=== PATIENT | male | born 1955 | race Caucasian/White ===

== ENCOUNTER 2020-05-24 07:06 | Outpatient (CLI) | payer MEDICARE, SELFPAY ==
[2020-05-24 08:19] LABS: Alanine Aminotransferase 13 U/L (4-50); Albumin Level 3.5 g/dL (3.5-5.1); Alkaline Phosphatase 119 U/L (38-126); Anion Gap 7 mmol/L (8-16); Aspartate Amino Transferase 13 U/L (17-59); Bilirubin,Total 0.4 mg/dL (0.2-1.3); Blood Urea Nitrogen 27 mg/dL (9-20); Calcium 9.4 mg/dL (8.4-10.2); Carbon Dioxide 26 mmol/L (22-30); Chloride 100 mmol/L (98-107); Cholesterol 196 mg/dL (0-200); Creatine Kinase 41 U/L (55-170); Estimated Glomerular Filt Rate 47; Glucose 362 mg/dL (75-110); HDL Direct 47 mg/dL; Potassium 4.4 mmol/L (3.4-5.0); Sodium 133 mmol/L (137-145); Triglycerides 263 mg/dL (<150)
[2020-05-24 08:30] LABS: LDL Cholesterol Direct 91 mg/dL
[2020-05-24 09:00] LABS: Creatinine Urine 53.9 mg/dL
[2020-05-24 11:16] LABS: Microalbumin Urine Random > 1140.0 mg/L (0-16.7)
[2020-05-25 02:44] LABS: Hepatitis C Virus Antibody Negative (Negative)
== END 2020-05-24 07:07 | disposition home or self-care (01) ==
PROVIDERS: PCP Nurse Practitioner Family; Visit Provider Nurse Practitioner Family
DX: E55.9 Vitamin D deficiency, unspecified (principal); E11.42 Type 2 diabetes mellitus with diabetic polyneuropathy; Z79.4 Long term (current) use of insulin
CPT/HCPCS: 36415; 80053; 80061; 82043; 82550; 86803

== ENCOUNTER 2020-06-24 12:31 | Outpatient (CLI) | payer MEDICARE, SELFPAY ==
--- NOTE | 2020-06-24 | EST_ITS ---
Patient Info Name: Mikhail Hill Age: 64 years : 1955 Gender: Male Ht: 75 in Wt: 400 lbs BSA: 3.19 m2 Exam Date: 06/24/2020 2:02 PM Exam Location: [facility] Stress Patient Status: Outpatient Admit Date: 06/24/2020 Staff Ordering Physician: Rajendra Stallworth MD Attending Provider: Rajendra Stallworth MD Exercise Technologist: Danna Ramsey RDCS Exercise Physician: Rajendra Stallworth MD Exam Type: CA dobutamine stress w david Study Info Indications R07.9 - Chest pain, unspecified Summary 1. Normal sinus rhythm. 2. Appropriate heart rate response to Empty. 3. Empty throughout the test. 4. Nuclear scan to follow. Will be reported separately. Please correlate with it. Protocol: Doubutamine Stress ECG Details Stage: REST Duration (min): 2 min : 42 sec Leija: --- Speed (mph): 0.0 Grade (%): 0 HR (bpm): 59 SBP (mmHg): 130 DBP (mmHg): 79 METS: --- Stage: REST Duration (min): 29 min : 45 sec Leija: --- Speed (mph): 0.0 Grade (%): 0 HR (bpm): 60 SBP (mmHg): 130 DBP (mmHg): 79 METS: --- Stage: STAGE 1 Duration (min): 1 min : 0 sec Leija: --- Speed (mph): 0.0 Grade (%): 0 HR (bpm): 63 SBP (mmHg): 130 DBP (mmHg): 79 METS: --- Stage: STAGE 1 Duration (min): 2 min : 0 sec Leija: --- Speed (mph): 0.0 Grade (%): 0 HR (bpm): 70 SBP (mmHg): 129 DBP (mmHg): 60 METS: --- Stage: STAGE 1 Duration (min): 3 min : 0 sec Leija: --- Speed (mph): 0.0 Grade (%): 0 HR (bpm): 85 SBP (mmHg): 146 DBP (mmHg): 62 METS: --- Stage: STAGE 2 Duration (min): 1 min : 0 sec Leija: --- Speed (mph): 0.0 Grade (%): 0 HR (bpm): 98 SBP (mmHg): 146 DBP (mmHg): 62 METS: --- Stage: STAGE 2 Duration (min): 2 min : 0 sec Leija: --- Speed (mph): 0.0 Grade (%): 0 HR (bpm): 116 SBP (mmHg): 210 DBP (mmHg): 58 METS: --- Stage: STAGE 2 Duration (min): 3 min : 0 sec Leija: --- Speed (mph): 0.0 Grade (%): 0 HR (bpm): 130 SBP (mmHg): 210 DBP (mmHg): 58 METS: --- Stage: STAGE 3 Duration (min): 0 min : 3 sec Elija: --- Speed (mph): 0.0 Grade (%): 0 HR (bpm): 130 SBP (mmHg): 210 DBP (mmHg): 58 METS: --- Stage: RECOVERY Duration (min): 0 min : 56 sec Leija: --- Speed (mph): 0.0 Grade (%): 0 HR (bpm): 118 SBP (mmHg): 235 DBP (mmHg): 61 METS: --- Stage: RECOVERY Duration (min): 1 min : 56 sec Leija: --- Speed (mph): 0.0 Grade (%): 0 HR (bpm): 109 SBP (mmHg): 235 DBP (mmHg): 61 METS: --- Stage: RECOVERY Duration (min): 2 min : 56 sec Leija: --- Speed (mph): 0.0 Grade (%): 0 HR (bpm): 102 SBP (mmHg): 235 DBP (mmHg): 61 METS: --- Stage: RECOVERY Duration (min): 3 min : 56 sec
--- NOTE | ~2020-06-24 | NM_ITS ---
EXAMINATION: NM Dobutamine stress w perfus DATE: 06/24/2020 15:46 INDICATION: Chest pain TECHNIQUE: Rest images were obtained following intravenous administration of 9.17 mCi Tc99m tetrofosm in ([employer]). The patient was infused intravenously with dobutamine. Prior to the end of the infusion , 28.1 mCi Tc99m tetrofosmin ([employer]) was administered intravenously, and stress images were obtaine d. Data was reconstructed into short axis and horizontal and vertical long axis SPECT images. Gated S PECT images were also obtained. COMPARISON: None. FINDINGS: Moderate to severe nonreversible perfusion defect consistent with infarct involving the mid inferior and basilar inferior segments. There is a mild reversible perfusion defect involving the ap ical lateral and mid inferolateral segments consistent with ischemia in the circumflex coronary arter y vascular distribution. There is normal left ventricular chamber size, wall motion and ejection frac tion. Left ventricular ejection fraction measures 63%. IMPRESSION: 1. Moderate to severe infarct involving the mid inferior and basilar inferior segments in the right c oronary artery vascular distribution. 2. Mild ischemia at the apical lateral and mid inferolateral segments in the circumflex coronary yanique ry vascular distribution. 3. Left ventricular ejection fraction measuring 63%. Reviewed, dictated and finalized at location A. IMPRESSION: 1. Moderate to severe infarct involving the mid inferior and basilar inferior s egments in the right coronary artery vascular distribution. 2. Mild ischemia at the apical lateral and mid inferolateral segments in the ci rcumflex coronary artery vascular distribution. 3. Left ventricular ejection fraction measuring 63%.
== END 2020-06-24 12:32 | disposition home or self-care (01) ==
LOC: ANHCARD 12:33
PROVIDERS: PCP Nurse Practitioner Family; Visit Provider Specialist
DX: I21.9 Acute myocardial infarction, unspecified (principal); I25.9 Chronic ischemic heart disease, unspecified; R07.9 Chest pain, unspecified; R06.09 Other forms of dyspnea
CPT/HCPCS: 78452; 93017; A9502; J0461; J1250

== ENCOUNTER 2021-08-29 12:29 | Outpatient (RCR) | payer MEDICARE, SELFPAY ==
--- NOTE | 2021-08-29 14:16 | REHOPWC ---
SEATING EVALUATION NOTIFICATION This is to notify provider that Mikhail Hill participated in a manual mobility device evaluation today. Recommendations were made specific to patient's needs. Seating Assessment documentation has been completed for detailed information on required equipment. The mobility device provider for this case is Sangeeta from [facility]. Please note that no further care plan will be developed on this account. [facility]. Please review, sign, date and return this discharge summary ALEXUS. I have been updated about the patient's current status and I agree with discharge from the above service at this time. Referring Physician Date
== END 2021-08-30 16:42 | disposition home or self-care (01) ==
LOC: ANHPT 12:29
PROVIDERS: PCP Nurse Practitioner Family; Visit Provider Nurse Practitioner Family
DX: Z74.09 Other reduced mobility (principal)
CPT/HCPCS: 97163

== ENCOUNTER 2023-01-10 22:50 | Inpatient (IN) | payer MEDICARE, SELFPAY ==
[2023-01-10] VITALS (14 sets, daily range): BP systolic 159–258; BP diastolic 92–150; PULSE 101–129; RESP 20–27; TEMP 36.1; O2SAT 69–99
--- NOTE | ~2023-01-10 | XR_ITS ---
EXAMINATION: XR chest 1V portable DATE: 01/14/2023 06:54 INDICATION: Respiratory failure. TECHNIQUE: A single frontal view of the chest was obtained. COMPARISON: Chest single view 01/13/2023, chest CT 01/12/2023 FINDINGS: The chest demonstrates clear lungs without pneumonia, pleural effusion, or pneumothorax. Th e heart size is normal. IMPRESSION: 1. No acute cardiopulmonary disease. Reviewed, dictated and finalized at location A.
--- NOTE | ~2023-01-10 | XR_ITS ---
EXAMINATION: XR chest 1V portable DATE: 01/13/2023 05:21 INDICATION: Respiratory failure. TECHNIQUE: A single frontal view of the chest was obtained on 2 radiographs. COMPARISON: Chest one view 01/12/2023, chest CT 01/12/2023 FINDINGS: There is no pneumonia, pleural effusion, or pneumothorax. The heart size is normal. IMPRESSION: 1. No acute cardiopulmonary disease. Reviewed, dictated and finalized at location A.
--- NOTE | ~2023-01-10 | XR_ITS ---
Portable chest x-ray Comparison: 03/05/2019 Clinical History: Chest pain Findings: There is mild to moderate pulmonary edema pattern. No pleural effusion or pneumothorax. C ardiomediastinal silhouette is stable. Bones and soft tissues are unremarkable. Impression: Mild to moderate bibasilar pulmonary edema. Correlate clinically for infection. Reviewed, dictated and finalized at [facility]. Impression: Mild to moderate bibasilar pulmonary edema. Correlate clinically for infection.
--- NOTE | ~2023-01-10 | XR_ITS ---
Portable chest x-ray Comparison: 01/10/2023 Clinical History: Respiratory failure Findings: There is mild pulmonary edema pattern, mildly improved from prior exam. No definite pleura l effusions. Cardiomediastinal silhouette is stable. Bones and soft tissues are unremarkable. Impression: Mild pulmonary edema pattern, improved from prior exam. Reviewed, dictated and finalized at [facility]. Impression: Mild pulmonary edema pattern, improved from prior exam.
--- NOTE | ~2023-01-10 | CT_ITS ---
EXAMINATION: CT chest abdomen pelvis wo con DATE: 01/12/2023 14:16 INDICATION: Hydronephrosis. TECHNIQUE: Computed tomography (CT) of the chest, abdomen, and pelvis was performed without intraveno us contrast. Automated exposure control and iterative reconstruction technique were employed. The dos e-length product was 2113.24 mGy-cm. COMPARISON: CT abdomen and pelvis 03/05/2019 FINDINGS: CHEST CT: There is mild dependent atelectasis bilaterally. Calcified right lung nodules and calcified right hil ar lymph nodes are consistent with old granulomatous disease. There are small pleural effusions. The heart size is normal. There are coronary artery calcifications. There are calcifications aortic valve . No pericardial effusion. There is bilateral gynecomastia. There are bridging endplate osteophytes a t multiple levels in the spine, consistent with diffuse idiopathic skeletal hyperostosis (DISH). Ther e is moderate thoracic spondylosis. ABDOMEN/PELVIS CT: The liver, gallbladder, and pancreas are normal. Calcifications in the spleen are consistent with old granulomatous disease. There are cysts in the kidneys measuring up to 15 mm on the left. There is no nephrolithiasis. There is no hydronephrosis. There is diverticulosis of the colon without evidence o f diverticulitis. The appendix is normal. There is calcified atherosclerosis of the aorta and many of the other arteries. There are no pathologically enlarged lymph nodes. There is no free intraperitone al fluid. There is moderate lumbar spondylosis. IMPRESSION: 1. No hydronephrosis. 2. Small pleural effusions. Reviewed, dictated and finalized at location A.
--- NOTE | ~2023-01-10 | US_ITS ---
EXAMINATION: US renal BI DATE: 01/11/2023 09:11 INDICATION: Acute kidney injury. TECHNIQUE: Multiple ultrasound grayscale images of the kidneys were obtained. COMPARISON: CT abdomen and pelvis 03/05/2019 FINDINGS: The right kidney measures 11.8 x 7.6 x 7.7 cm. The left kidney measures 15.0 x 6.7 x 8.1 cm. The kidn eys demonstrate normal parenchymal echogenicity. There is mild right hydronephrosis. The bladder is n ot visualized due to obesity. IMPRESSION: 1. Mild right hydronephrosis. Sensitivity and specificity are decreased by obesity. Reviewed, dictated and finalized at location A. IMPRESSION: 1. Mild right hydronephrosis. Sensitivity and specificity are decreased by obe sity.
--- NOTE | 2023-01-10 22:55 | ECG_ITS ---
Measurements Intervals [place] Rate: 127 P: 215 FL: 101 QRS: 75 QRSD: 136 T: 267 QT: 293 QTc: 427 Interpretive Statements SINUS OR ECTOPIC ATRIAL TACHYCARDIA INTRAVENTRICULAR CONDUCTION DELAY ANTEROSEPTAL ST ELEVATION- CONSIDER ACUTE INFARCT BASELINE WANDER- II, III, AVR, AVF, V1-V3 ABNORMAL ECG NO PREVIOUS ECG AVAILABLE FOR COMPARISON Electronically Signed On 01-11-2023 7:48:49 CDT by Yousif Stark D.O.
[2023-01-10] MEDS: NITROGLYCERIN OINTMENT 1 INCH DOSE TRANSDERM (23:00)
[2023-01-10] MEDS: FUROSEMIDE INJ 100 MG/10 ML VIAL 80 MG IV PUSH (23:00)
[2023-01-10] MEDS: NITROGLYCERIN SL 0.4 MG TABLET SUBLINGUAL (23:00)
[2023-01-10 23:04] LABS: Glucose Point of Care 324 mg/dl (65-105)
[2023-01-10 23:07] LABS: Basophils Absolute Auto 0.2 K/mm3 (0.0-0.1); Eosinophils Absolute Auto 0.2 K/mm3 (0-0.3); Eosinophils Percent Auto 1.3 % (0-4.4); Hematocrit 49.7 % (42.0-52.0); Hemoglobin 15.7 g/dL (14.0-18.0); Immature Granulocyte Percent A 0.6 % (0-0.5); Lymphocytes Absolute Auto 3.78 K/mm3 (0.9-3.2); Lymphocytes Percent Auto 23.1 % (18.3-44.2); Mean Corpuscular HGB Conc 31.6 g/dl (32-36); Mean Corpuscular Hemoglobin 29.5 pg (26-34); Mean Corpuscular Volume 93.4 fl (80-100); Mean Platelet Volume 10.2 fl (7.4-10.4); Monocytes Percent Auto 6.3 % (2.6-8.5); Neutrophils Absolute Auto 11.1 K/mm3 (1.3-6.7); Neutrophils Percent Auto 67.7 % (45.5-73.1); Platelet Count Result 470 k/mm3 (150-375); Red Blood Count 5.32 M/mm3 (4.6-6.20); Red Cell Distribution Width 13.4 % (11.5-14.5); White Blood Count 16.4 K/mm3 (4.5-10.0)
--- NOTE | 2023-01-10 23:07 | ED.GENADULT ---
HPI - General Adult General Chief complaint: Chest Pain Stated complaint: cp/STEMI Time Seen by Provider: 01/10/23 23:02 History of Present Illness HPI narrative: this is a 67-year-old male presenting ED with a chief complaint of chest pain and difficulty breathing. Patient states that he has had indigestion for the last 3 days. prior to arrival he then developed a burning pain in the center of his chest that is nonradiating, 5/10 intensity and constant. Approximately 30 minutes after that he developed shortness of breath and EMS was called. When EMS arrived he was hypoxic and placed on 15 L non-rebreather which improved his oxygenation to 85. Patient's blood pressure was >220/100 at that time. Patient took 650 aspirin prior to arrival. This time patient has 1-2 word dyspnea and is unable to provide much history. Related Data Home Medications Medication Instructions Recorded Confirmed insulin syringe needleless 1 mL #100 ea 09/10/19 12/02/19 (Easy Touch Luer Lock Insulin) pen needle, diabetic 32 gauge x #100 ea 09/10/19 12/02/19 1/6 (NovoFine Plus) pen needle, diabetic 32 gauge x #10 ea 09/10/19 12/02/19 5/32 (BD Ultra-Fine Kajal Pen Needle) Allergies Allergy/AdvReac Type Severity Reaction Status Date / Time acetaminophen Allergy Unknown Agitated Verified 01/10/23 22:53 Sulfa (Sulfonamide Allergy Unknown Agitated Verified 01/10/23 22:53 Antibiotics) HYDROCODONE BIT AdvReac Severe N/V Uncoded 01/10/23 22:53 PMFSH Past Medical History Medical History (Updated 01/11/23 @ 00:15 by Migue Gomez MD) Broken finger Broken foot CAD (coronary artery disease) DVT (deep venous thrombosis) Hernia Stroke Surgical History Surgical History H/O: knee surgery Hx of laminectomy Family History Family History Father Hypertension Mother Arthritis CAD (coronary artery disease) Grandparent Cerebrovascular accident Grandparent Cancer Father Family history of obesity Family history of heart disease in male family member before age 55 Hypertension Cerebrovascular accident Family history of arthritis Grandparent Hypertension Cerebrovascular accident Family history of malignant neoplasm Mother Family history of arthritis Other Diabetes mellitus Family history of allergic disorder Family history of coronary artery disease Social History Social History Smoking packs per day: 1 Smoking cigarettes per day: 20.0 Smoking status: Current every day smoker Second hand tobacco smoke exposure: Yes Alcohol intake: unknown Substance use: unknown Exam Narrative: APPEARANCE:Patient is diaphoretic appears uncomfortable Head: atraumatic. EYES: EOMI, NOSE: Atraumatic NECK: Trachea midline RESPIRATORY: tachypneic, hypoxic on room air, rhonchi in all lomeli CARDIOVASCULAR: RRR, no peripheral edema ABDOMINAL: Non-distended, obese MUSCULOSKELETAl: No obvious deformities NEURO: Alert. Moving 4/4 extremities SKIN:: diaphoretic PSYCHIATRIC: Normal affect Course Vital Signs Vital signs: Vital Signs Pulse Rate 129 H 01/10/23 22:53 Respiratory Rate 25 H 01/10/23 22:53 Pulse Oximetry 89 L 01/10/23 22:53 Oxygen Delivery Non-Rebreather Mask 01/10/23 22:53 Oxygen Flow Rate 15 01/10/23 22:53 Temperature 97 F L 01/10/23 22:55 Pulse Rate 101 H 01/10/23 23:51 Respiratory Rate 20 01/10/23 23:51 Blood Pressure 158/84 H 01/11/23 00:00 Pulse Oximetry 99 01/10/23 23:51 Oxygen Delivery BiPAP 01/10/23 23:37 Oxygen Flow Rate 15 01/10/23 22:53 Procedures Arterial Line Arterial line #1: Arterial Line Location: radial and left Discussed with the patient/family/POA, the placement of an arterial catheter, including its clinical necessity/indication and associated potential
[2023-01-10] MEDS: NITROGLYCERIN/D5W 200 MCG/ML 50 MG/250 ML BTL 30 MG IV CONT (23:10)
[2023-01-10 23:18] LABS: Alanine Aminotransferase 20 U/L (6-50); Albumin Level 4.1 g/dL (3.5-5.1); Alkaline Phosphatase 139 U/L (38-126); Anion Gap 10 mmol/L (8-16); Aspartate Amino Transferase 21 U/L (17-59); Bilirubin,Total 0.6 mg/dL (0.2-1.3); Blood Urea Nitrogen 40 mg/dL (9-20); Calcium 10.4 mg/dL (8.4-10.2); Carbon Dioxide 23 mmol/L (22-30); Chloride 104 mmol/L (98-107); Estimated CRCL calculation 52 ml/min; Estimated Glomerular Filt Rate 27; Glucose 358 mg/dL (65-110); Lipase 108 U/L (23-300); Partial Thromboplastin Time 29.5 SECONDS (22.3-36.8); Potassium 5.2 mmol/L (3.4-5.0); Prothrombin Time 12.6 Seconds (11.1-14.7); Sodium 137 mmol/L (137-145)
--- NOTE | 2023-01-10 23:42 | ECG_ITS ---
Measurements Intervals [place] Rate: 104 P: 39 ND: 172 QRS: 80 QRSD: 126 T: 262 QT: 335 QTc: 442 Interpretive Statements SINUS TACHYCARDIA INTRAVENTRICULAR CONDUCTION DELAY ST ELEVATION IN SEPTAL LEADS- CONSIDER ACUTE INFARCT WITH RECIPROCAL ST DEP DEPRESSION IN ANTEROLAT/INF LEADS ABNORMAL ECG COMPARED TO ECG 01/10/2023 22:52:26 HEART RATE HAS DECREASED Electronically Signed On 01-11-2023 7:52:44 CDT by Yousif Stark D.O.
[2023-01-10 23:50] LABS: Influenza A QL RT-PCR Negative (Negative); Influenza B QL RT-PCR Negative (Negative); SARS-CoV-2 RNA PCR Negative
[2023-01-10] MEDS: fentaNYL CITRATE INJ (*CRX) 100 MCG/2 ML VIAL IV PUSH (23:53)
[2023-01-10] MEDS: DEXTROSE 50% 25 GM/50 ML SYRINGE IV PUSH (23:55)
[2023-01-10] MEDS: INSULIN HUMAN REGULAR (*BKC) 100 UNITS/ML 10 UNITS IV PUSH (23:57)
[2023-01-10] MEDS: CALCIUM GLUCONATE 1,000 MG/10 ML VIAL 2000 MG IV PUSH (23:58)
[2023-01-11] VITALS (67 sets, daily range): BP systolic 96–228; BP diastolic 54–123; PULSE 63–102; RESP 11–25; TEMP 36.5–37.2; O2SAT 92–100; BMI 54.0
--- NOTE | 2023-01-11 | ECHO_ITS ---
Patient Info Name: Mikhail Hill Age: 67 years : 1955 Gender: Male Ht: 75 in Wt: 432 lbs BSA: 3.32 m2 HR: 77 bpm BP: 148 / 70 mmHg Heart Rhythm: Sinus Rhythm Exam Date: 01/11/2023 7:22 AM Exam Location: [facility] Pulmonary Patient Status: Inpatient Admit Date: 01/11/2023 Staff Ordering Physician: Mert Neff MD Social Welfare Administrator: Salas Rascon, RDCS, RT Attending Provider: Mert Neff MD Referring Physician: Tawanda VILLANUEVA; Exam Type: CA echo dop color flow w con Study Info Indications J96.91 - Respiratory failure, unspecified with hypoxia Complete two-dimensional, color flow and Doppler transthoracic echocardiogram is performed with contrast to opacify the left ventricle and to improve the deliniation of the left ventricle endocardial borders. Summary 1. Technically difficult study due to body habitus. 2. Left ventricular chamber dimension is normal. 3. There is moderately increased left ventricular wall thickness. 4. Left ventricular systolic function is severely reduced, estimated at 20-25%. 5. The left ventricular diastolic function is grade I diastolic dysfunction. 6. Right ventricular systolic function is normal. 7. There is trace mitral valve regurgitation. 8. There is trace tricuspid valve regurgitation. 9. Normal inferior vena cava with >50% collapse upon inspiration consistent with normal right atrial pressure, 3 mmHg. 10. There is trivial pericardial effusion. Left Ventricle Left ventricular chamber dimension is normal. Left ventricular systolic function is severely reduced, estimated at 20-25%. There is moderately increased left ventricular wall thickness. The left ventricular diastolic function is grade I diastolic dysfunction. Right Ventricle Right ventricular chamber dimension is not well visualized. Right ventricular systolic function is normal. Left Atria Left atrial chamber dimension is normal. Right Atria Right atrial chamber dimension is normal. Atrial Septum Intact interatrial septum visualized by color flow imaging. Aortic Valve The aortic valve is not well visualized. There is no aortic valve stenosis. There is no aortic valve regurgitation. Pulmonic Valve The pulmonic valve is not well visualized. Mitral Valve There is trace mitral valve regurgitation. Tricuspid Valve There is trace tricuspid valve regurgitation. Pericardium/Pleural The pericardium appears epicardial fat pad. There is trivial pericardial effusion. Inferior Vena Cava Normal inferior vena cava with >50% collapse upon inspiration consistent with normal right atrial pressure, 3 mmHg. Aorta The aortic root size at the sinus of Valsalva is not well visualized. Left Ventricular Outflow Tract Name Value Normal LVOT 2D LVOT Diameter 2.06 cm LVOT Doppler LVOT Peak Gradient 5 mmHg LVOT Mean Gradient 2 mmHg LVOT VTI 19.07 cm LVOT VTI/AV VTI Ratio 0.76 LVOT Stroke Volume 63.51 ml LVOT CO 5.02 l/m
[2023-01-11] MEDS: DOXYCYCLINE 100 MG/NS 100 ML 100 MG/100 ML BAG IVPB ×3 (00:19→23:04)
[2023-01-11 00:20] LABS: Alveolar/Arterial O2 Gradient 368.8 mmHg; Base Excess ABG -6.5 mEq/l (+/-2.0); Fractional Inspired Oxygen 100 %; HCO3 ABG 21.6 mEq/l (22.0-26.0); Oxygen Saturation ABG 99.6 % (95.0-100.0); PCO2 ABG 53.2 mmHg (35.0-45.0); PO2 FiO2 Ratio Arterial Blood 2.91 %; pH ABG 7.227 (7.350-7.450)
[2023-01-11 00:21] LABS: Device BIPAP; Site Drawn ARTLINE
[2023-01-11 00:22] LABS: Expiratory Pressure 8 cmH2O; Inspiratory Pressure 16 cmH2O
[2023-01-11] MEDS: HEPARIN SOD/D5W 100 UNITS/ML 25,000 UNITS/250 ML BAG 10 UNITS IV CONT (00:22)
[2023-01-11 00:26] LABS: Hematocrit 43.9 % (42.0-52.0); Hemoglobin 13.8 g/dL (14.0-18.0); Mean Corpuscular Hemoglobin 28.9 pg (26-34); Red Blood Count 4.77 M/mm3 (4.6-6.20); White Blood Count 13.6 K/mm3 (4.5-10.0)
[2023-01-11 00:26] LABS: Glucose Point of Care 395 mg/dl (65-105)
[2023-01-11 00:26] LABS: Glucose Point of Care 213 mg/dl (65-105)
[2023-01-11 00:27] LABS: Basophils Absolute Auto 0.1 K/mm3 (0.0-0.1); Basophils Percent Auto 0.4 % (0.2-1.2); Eosinophils Absolute Auto 0.1 K/mm3 (0-0.3); Eosinophils Percent Auto 0.4 % (0-4.4); Immature Granulocyte Absolute 0.07 K/mm3 (0.00-0.031); Immature Granulocyte Percent A 0.5 % (0-0.5); Lymphocytes Absolute Auto 1.15 K/mm3 (0.9-3.2); Lymphocytes Percent Auto 8.4 % (18.3-44.2); Mean Corpuscular HGB Conc 31.4 g/dl (32-36); Mean Platelet Volume 9.9 fl (7.4-10.4); Monocytes Absolute Auto 0.6 K/mm3 (0.1-0.6); Neutrophils Absolute Auto 11.7 K/mm3 (1.3-6.7); Neutrophils Percent Auto 86.3 % (45.5-73.1); Platelet Count Result 353 k/mm3 (150-375); Red Cell Distribution Width 13.2 % (11.5-14.5)
[2023-01-11] MEDS: ONDANSETRON INJ 4 MG/2 ML VIAL IV PUSH ×2 (00:31→00:35)
[2023-01-11 00:37] LABS: Prothrombin Time 12.7 Seconds (11.1-14.7)
[2023-01-11 00:38] LABS: Partial Thromboplastin Time 26.4 SECONDS (22.3-36.8)
[2023-01-11] MEDS: NITROGLYCERIN/D5W 200 MCG/ML 50 MG/250 ML BTL 30 MG IV CONT (01:30)
--- NOTE | 2023-01-11 01:46 | ADMGEN ---
This patient, Mikhail Hill, was admitted to Intensive Care Unit-9. Patient/family oriented to hospital policies and general routines including ID bracelet, bed and alarms, visiting hours, pain management, procedures, bathroom and other care routines, personal items, smoking policy, room service/diet, and visiting hours. Information on how to activate the Rapid Response Team has been discussed. Patient/Family are encouraged to report perceived risks to care and to ask questions if they do not understand what they are told or what they should do.
--- NOTE | 2023-01-11 03:09 | ECG_ITS ---
Measurements Intervals [place] Rate: 79 P: 0 IA: 160 QRS: 54 QRSD: 115 T: 243 QT: 355 QTc: 409 Interpretive Statements SINUS RHYTHM INTRAVENTRICULAR CONDUCTION DELAY INFERIOR INFARCT, AGE INDETERMINATE SUBTLE ST ELEVATION IN SEPTAL LEADS ST-T WAVE ABNORMALITY IN ANTEROLATERAL LEADS- CONSIDER ISCHEMIA ABNORMAL ECG COMPARED TO ECG 01/10/2023 23:46:12 SINUS RHYTHM NOW PRESENT Electronically Signed On 01-11-2023 7:55:55 CDT by Yousif Stark D.O.
--- NOTE | 2023-01-11 03:27 | PM.IMHP ---
H&P: HPI History of Present Illness Date/Time: 01/11/23 03:27 Chief Complaint: Chest pain and shortness of breath Narrative: Patient is a 67-year-old male with past medical history obesity hypertension and diabetes coming in for chest pain shortness Jordan breath. Patient supposedly was brought in by EMS after he complained of some chest pain and shortness of breath at home. On arrival to the emergency room patient was in florid respiratory failure in without blood pressure of 250/150. The patient had a chest x-ray done which showed pulmonary edema. He had an EKG done which showed some ST depressions. Patient was treated with IV Lasix and was started on a nitro drip to control his blood pressure. He was thought to be in flash pulmonary edema and hypertensive emergency. Patient had an initial troponin of 0.19. Patient had improvement of symptoms would Lasix and initiation of nitro drip with decrease in his blood pressure. Patient was referred to the clinical aide who recommended starting patient on heparin drip. Patient currently seen in the ICU. He is on a nitro drip with blood pressure in the 160 systolic. The patient is also on a BiPAP but is able to converse without any evidence of tachypnea or distress. Patient says he is feeling so much better and is currently denying any chest pains. Patient is awake alert oriented x3. He says he is compliant with this medications with usual blood sugar readings of 130s and blood pressures in the 140s to 150 so only. He says he takes his insulin as instructed. He denies any current headache, fever, nausea or vomiting. There is no dysuria or diarrhea. He is able to lay flat in bed. Review of Systems Review of Systems: no fever or weight loss no vision changes, no eye discharge no throat pain, no hoarseness, no lymphadenopathy Resolved chest pain, no palpitations no coughing, no wheezing no abdominal pain, no diarrhea, no nausea, no vomiting no dysuria, no vaginal discharge no leg swelling, no edema no suicidal or homicidal ideation PMFSH Past Medical History Medical History (Updated 01/11/23 @ 00:15 by Migue Gomez MD) Broken finger Broken foot CAD (coronary artery disease) DVT (deep venous thrombosis) Hernia Stroke Surgical History Surgical History H/O: knee surgery Hx of laminectomy Family History Family History Father Hypertension Mother Arthritis CAD (coronary artery disease) Grandparent Cerebrovascular accident Grandparent Cancer Father Family history of obesity Family history of heart disease in male family member before age 55 Hypertension Cerebrovascular accident Family history of arthritis Grandparent Hypertension Cerebrovascular accident Family history of malignant neoplasm Mother Family history of arthritis Other Diabetes mellitus Family history of allergic disorder Family history of coronary artery disease Social History Social History Smoking packs per day: 1 Smoking cigarettes per day: 20.0 Years smoked: 30 Smoking pack-years: 30.00 Smoking status: Former smoker Tobacco type: cigarettes Second hand tobacco smoke exposure: Yes Alcohol intake: former Substance use: never Lack of Transportation: No Lack of Food: Never True Current Housing: I Have Housing Concerned About Future Housing: No Difficulty Paying Gas/Electric Bills: No Difficulty Paying for Meds: No Currently Unemployed: No Education: High School Diploma/GED Difficulty w/ Childcare or Family Care: No Spiritual care concerns: No Meds Home Medications and Allergies Home Medications Medication Instructions Recorded Confirmed Type insulin lispro 100 unit/mL 15 unit (0.15 mL) subcut DAILY #3 09/10/19 01/11/23 Rx subcutaneous pen (Humalog KwikPen mL (U-1
--- NOTE | 2023-01-11 03:50 | PC.NURSE ---
Troponin increased from 0.190 to 25.3. Patient denies chest pain, shortness of breath, dizziness, or nausea & vomiting. Dr. Neff notified and received orders to obtain EKG and notify [employer] risk control field representative. Dr. Fortune notified and, after reviewing EKG's, RN received order to continue current treatment of Heparin and Nitroglycerin drips and make patient NPO for possible cardiac catheterization in the AM. Will continue to monitor.
[2023-01-11] MEDS: NITROGLYCERIN/D5W 200 MCG/ML 50 MG/250 ML BTL 28.5 MG IV CONT (05:50)
[2023-01-11 06:19] LABS: Alveolar/Arterial O2 Gradient 99.1 mmHg; Base Excess ABG -2.3 mEq/l (+/-2.0); Fractional Inspired Oxygen 36 %; HCO3 ABG 24.2 mEq/l (22.0-26.0); Oxygen Content ABG 18.6 %vol (16.0-22.0); Oxygen Saturation ABG 97.2 % (95.0-100.0); Oxyhemoglobin 96.5 % THb (90.0-100.0); PO2 ABG 101.9 mmHg (80.0-100.0); PO2 FiO2 Ratio Arterial Blood 2.83 %; Total Hemoglobin 13.6 g/dL (12.0-18.0)
[2023-01-11 06:20] LABS: Device NASAL CANNULA; Site Drawn ARTLINE
[2023-01-11 06:24] LABS: Basophils Absolute Auto 0.1 K/mm3 (0.0-0.1); Basophils Percent Auto 0.5 % (0.2-1.2); Eosinophils Absolute Auto 0.1 K/mm3 (0-0.3); Eosinophils Percent Auto 0.5 % (0-4.4); Hematocrit 39.9 % (42.0-52.0); Hemoglobin 12.4 g/dL (14.0-18.0); Immature Granulocyte Absolute 0.06 K/mm3 (0.00-0.031); Immature Granulocyte Percent A 0.5 % (0-0.5); Lymphocytes Absolute Auto 1.88 K/mm3 (0.9-3.2); Lymphocytes Percent Auto 15.1 % (18.3-44.2); Mean Corpuscular HGB Conc 31.1 g/dl (32-36); Mean Corpuscular Hemoglobin 28.2 pg (26-34); Mean Corpuscular Volume 90.7 fl (80-100); Mean Platelet Volume 10.1 fl (7.4-10.4); Monocytes Percent Auto 7.8 % (2.6-8.5); Neutrophils Absolute Auto 9.4 K/mm3 (1.3-6.7); Neutrophils Percent Auto 75.6 % (45.5-73.1); Platelet Count Result 313 k/mm3 (150-375); Red Cell Distribution Width 13.1 % (11.5-14.5); White Blood Count 12.4 K/mm3 (4.5-10.0)
[2023-01-11 06:36] LABS: Alanine Aminotransferase 36 U/L (6-50); Albumin Level 3.3 g/dL (3.5-5.1); Alkaline Phosphatase 75 U/L (38-126); Anion Gap 4 mmol/L (8-16); Aspartate Amino Transferase 266 U/L (17-59); Bilirubin,Total 0.4 mg/dL (0.2-1.3); Blood Urea Nitrogen 41 mg/dL (9-20); Calcium 10.5 mg/dL (8.4-10.2); Carbon Dioxide 29 mmol/L (22-30); Chloride 105 mmol/L (98-107); Estimated CRCL calculation 51 ml/min; Estimated Glomerular Filt Rate 27; Glucose 253 mg/dL (65-110); Potassium 4.6 mmol/L (3.4-5.0); Sodium 138 mmol/L (137-145)
[2023-01-11 06:37] LABS: Partial Thromboplastin Time 29.8 SECONDS (22.3-36.8)
[2023-01-11] MEDS: HEPARIN SODIUM 5,000 UNITS/ML VIAL 4000 UNITS IV PUSH ×3 (06:43→19:55)
[2023-01-11 08:15] LABS: Creatine Kinase 1321 U/L (55-170)
[2023-01-11] MEDS: carvediloL 6.25 MG TABLET PO ×2 (08:36→20:12)
[2023-01-11] MEDS: INSULIN GLARGINE (*BKC) 100 UNITS/ML 30 UNITS SUB-Q (08:36)
[2023-01-11] MEDS: DULoxetine HCL 60 MG CAPSULE.DR PO (08:44)
[2023-01-11] MEDS: ROSUVASTATIN 10 MG TABLET 40 MG PO (08:44)
[2023-01-11] MEDS: ASPIRIN 325 MG ENTERIC TABLET PO (08:47)
--- NOTE | 2023-01-11 09:54 | WPDCNINT ---
Assessment and Plan Assessment and plan (1) Respiratory failure, acute: Code(s): J96.00 - Acute respiratory failure, unspecified whether with hypoxia or hypercapnia Status: Acute Assessment and Plan: Acute respiratory failure secondary to congestive heart failure and pulmonary edema Patient was started on BiPAP in the ER In ICU patient has been now weaned down to nasal cannula Continue to monitor Continue BiPAP p.r.n. and CPAP at night for sleep apnea Chest x-ray Mild to moderate bibasilar pulmonary edema. Correlate clinically for infection. Since he had elevated WBC patient was empirically started on antibiotics for community-acquired pneumonia which will be continued although the likelihood of infection is low. Check cultures and procalcitonin level. Will also check urine Legionella pneumococcal antigen. Check mycoplasma IgM (2) Flash pulmonary edema: Code(s): J81.0 - Acute pulmonary edema Status: Acute Assessment and Plan: Secondary to hypertensive emergency and non STEMI Improved with Lasix Patient down to nasal cannula now (3) Non-ST elevation [place] (NSTEMI): Code(s): I21.4 - Non-ST elevation (NSTEMI) myocardial infarction Status: Acute Assessment and Plan: EKG reviewed and showed ST T-wave abnormality. Patient had elevated troponin and chest pain He had a stress test done in June of 2020 which was abnormal but he never saw any outside repairer special following the testing. Patient likely has underlying coronary disease Currently chest pain-free Continue aspirin statin beta-viktoriya and heparin infusion Echocardiogram has been done and report is pending Cardiology was consulted in the ED and will evaluate patient today (4) Elevated serum creatinine: Code(s): R79.89 - Other specified abnormal findings of blood chemistry Status: Acute Assessment and Plan: Patient presented with creatinine of 2.4, Last recorded creatinine was 1.5 in May of 2020 With history of hypertension diabetes patient likely has chronic kidney disease and not sure if 2.4 is his baseline or this has been acute elevation in creatinine Patient has elevated CK level at 1321 which could be secondary to myocardial infarction Patient mentioned history of kidney stones. I will Check renal ultrasound Nephrology consulted Monitor urine output electrolytes and creatinine Hold further diuretics today (5) Diabetes type 2, uncontrolled: Code(s): E11.65 - Type 2 diabetes mellitus with hyperglycemia Status: Acute Assessment and Plan: Currently NPO Continue sliding scale Will give Lantus this morning (6) Hyperlipidemia: Code(s): E78.5 - Hyperlipidemia, unspecified Status: Acute Assessment and Plan: Continue rosuvastatin (7) MATEUS (obstructive sleep apnea): Code(s): G47.33 - Obstructive sleep apnea (adult) (pediatric) Status: Acute Assessment and Plan: Nightly cPAP ordered (8) Hypertensive emergency: Code(s): I16.1 - Hypertensive emergency Status: Acute Assessment and Plan: Patient presented with elevated blood pressure above 200 systolic and was started on nitroglycerin infusion I have added Coreg this morning patient did receive Lasix Blood pressure has now improved and I have currently discontinue nitroglycerin infusion Will restart if needed depending on his blood pressure response and if patient develops any more chest pain Plan DVT prophylaxis -heparin infusion Nutrition -NPO Code Status - Full Code Total Critical Care Time - 40 minutes Due to a high probability of clinically significant, life threatening deterioration, the patient required my highest level of preparedness to intervene emergently and I personally spent this critical care time directly and personally managing the patient. This critical care time included obtaining a history; examining the patient; pulse oximetry; ordering and review of studies; arrangi
--- NOTE | 2023-01-11 11:16 | PM.CNCAR ---
Assessment and Plan Assessment and plan (1) Non-ST elevation [place] (NSTEMI): Code(s): I21.4 - Non-ST elevation (NSTEMI) myocardial infarction Status: Acute Assessment and Plan: Patient had a dobutamine stress test in 06/2020 that showed moderate-severe infarct involving the RCA territory and mild ischemia in the LCX territory. LVEF at that time 63%. It does not appear patient ever followed up with anyone regarding the abnormal stress test. Troponin trend: 0.190 --> 25.3 --> 70.3. Will continue to trend troponin until peak. Recommended cardiac cath, however, cannot pursue at this time given DEE with SCr of 2.4. No urgency for cath at this time as patient is now asymptomatic without any chest pain. Continue Heparin drip x 48 hours. ASA 81mg once daily. Will start Plavix 75mg once daily. High-intensity statin. Beta viktoriya. TTE pending. (2) Hypertensive emergency: Code(s): I16.1 - Hypertensive emergency Status: Acute Assessment and Plan: SBP 258/150mmHg on arrival. Improved with NTG drip. Now normotensive and off of NTG drip. Continue with Carvedilol. Cannot use ACEi/ARB for blood pressure control at this time due to DEE. Would start CCB if blood pressure control needed. (3) Acute kidney injury: Code(s): N17.9 - Acute kidney failure, unspecified Status: Acute Assessment and Plan: Scr of 2.4. Baseline unknown, but no known history of CKD. (4) Flash pulmonary edema: Code(s): J81.0 - Acute pulmonary edema Status: Acute Assessment and Plan: Resolved with BIPAP, NTG drip, Lasix. Intermittent Lasix as needed to maintain euvolemia. (5) Respiratory failure, acute: Code(s): J96.00 - Acute respiratory failure, unspecified whether with hypoxia or hypercapnia Status: Acute Assessment and Plan: Require BIPAP. Management as per ICU (6) Diabetes type 2, uncontrolled: Code(s): E11.65 - Type 2 diabetes mellitus with hyperglycemia Status: Acute Assessment and Plan: Will check A1c (7) Hyperlipidemia: Code(s): E78.5 - Hyperlipidemia, unspecified Status: Acute Assessment and Plan: Check lipid panel. Continue high-intensity statin (8) MATEUS (obstructive sleep apnea): Code(s): G47.33 - Obstructive sleep apnea (adult) (pediatric) Status: Acute Assessment and Plan: Will need CPAP when sleeping. History of Present Illness History of Present Illness Consult date/time: 01/11/23 11:17 Requesting physician: Migue Gomez MD Consult reason: Other (NSTEMI) Reason For Visit: hypoxic resp failure Narrative: This is a 67-year-old male with known coronary artery disease, morbid obesity with BMI 54, history of kidney stones, hypertension, diabetes who presented with shortness of breath and chest pain. Patient tells me that he's been having chest pain that first began about 3-4 days. Not associated with exertion, but noticed it after eating. Patient states yesterday, he ate some pizza and then began having chest pain and then developed shortness of breath. He characterizes his chest pain as a burning type of pain that normally improves with antacids, but yesterday's episode of chest pain did not improve with antacids. No radiation of pain. Due to the shortness of breath, he called EMS. When EMS arrived, he was hypoxic and placed on 15L non-rebreather which improved his oxygenation to 85%. Patient states he took 650mg of ASA prior to arrival. Initially, a STEMI was activated in the field by EMS. When patient arrived to the ER, immediate EKG was obtained. I reviewed the EKG with the ER attending, Dr. Gomez, which did not show clear evidence of STEMI. There were ST depressions concerning for myocardial ischemia. Patient was severely hypertensive at that time as well with BP of 258/150mmHg. Patient was hypoxic and only able to speak 1-2 word sentences. He was placed on BIPAP and NTG drip was started. Also given IV
[2023-01-11 11:33] LABS: Procalcitonin 0.4 ng/mL
[2023-01-11] MEDS: CLOPIDOGREL BISULFATE 300 MG TABLET PO (11:43)
[2023-01-11] MEDS: cefTRIAXone 2 GM/NS 100 ML 2 GM/100 ML BAG IVPB (11:43)
[2023-01-11 12:07] LABS: Hemoglobin A1C 8.2 % (<5.7)
--- NOTE | 2023-01-11 12:09 | P.CONNP_ITS ---
Assessment and Plan Assessment and plan (1) Acute kidney injury: Code(s): N17.9 - Acute kidney failure, unspecified Status: Acute Assessment and Plan: * creatinine a tad higher that baseline (see #2) * however, rather than an acute insult, this may just be an element of CKD progression * direutic regimen was changed from HCTZ to furosemide about 4 months ago * follow-up on pending testing (urine electrolytes, renal ultrasound...etc) * follow repeat labs and UOP (2) Stage 3b chronic kidney disease: Code(s): N18.32 - Chronic kidney disease, stage 3b Status: Chronic Assessment and Plan: * recently established care with Dr. Gold for this issue * baseline creatinine has been running ~ 1.9 - 2.2mg/dl in the last year (2021) * was 1.6mg/dl in 2020 * etiology of CKD thought to be seconday to DM, HTN, vascular disease and kidney stones * history of bilateral staghorn kidney stones requiring lithotripsies/ureteral stents placement + removal/nephrostomy tubes placement + removal (3) Respiratory failure, acute: Code(s): J96.00 - Acute respiratory failure, unspecified whether with hypoxia or hypercapnia Status: Acute Assessment and Plan: * multifactorial: * CHF * pulmonary edema (secondary to HTN urgency + NSTEMI) * MATEUS/OHS * pneumonia(?) * was on BiPAP in ER - weaned down to nasal cannula * s/p IV diuretic therapy for pulmonary edema * empirically on antibiotics * follow respiratory status (4) Non-ST elevation [place] (NSTEMI): Code(s): I21.4 - Non-ST elevation (NSTEMI) myocardial infarction Status: Acute Assessment and Plan: * as noted by evidence to date: * EKG with ST and T wave abnormalities * elevated troponins * chest pain on presentation * has clear risk factors for CAD * abnormnal stress test 2019 (no follow-up regarding this testing) * chest pain free * Cardiology following * continue medical management (ASA + BB + heparin gtt) * follow-up on Echo * ischemic evaluation may be limited by renal dysfunction (5) Hypertension: Code(s): I10 - Essential (primary) hypertension Status: Chronic Assessment and Plan: * HTN urgency on presentation * better control at this time * off nitro gtt currently * follow trend of hemodynamics with current medications (6) Diabetes type 2, uncontrolled: Code(s): E11.65 - Type 2 diabetes mellitus with hyperglycemia Status: Acute Assessment and Plan: * follow accuchecks * glycemic control per hospitalist/modeling and simulation analyst Greater than 25 minutes was spent in detailed review of his extensive medical records along with the information that the patient was able to provide as well. I will continue to follow the patient with you while he remains hospitalized and make further recommendations during his hospital course. Thank you for allowing me to participate in the care this patient History of Present Illness Reason for Consult Consult date: 01/11/23 Reason for consult: acute renal failure (on chronic kidney disease) Chief Complaint Chief complaint: hypoxic resp failure History of Present Illness Narrative: A great deal the information I have obtained with regard to the patient's past medical history is from review of his electronic medical records at [facility] along with what history the patient was able to provide. The patient is a 67-year-old male with an extensive past medical history as outlined below who presented to [facility]
--- NOTE | 2023-01-11 12:09 | PM.CNNEP ---
Assessment and Plan Assessment and plan (1) Acute kidney injury: Code(s): N17.9 - Acute kidney failure, unspecified Status: Acute Assessment and Plan: creatinine a tad higher that baseline (see #2) however, rather than an acute insult, this may just be an element of CKD progression direutic regimen was changed from HCTZ to furosemide about 4 months ago follow-up on pending testing (urine electrolytes, renal ultrasound...etc) follow repeat labs and UOP (2) Stage 3b chronic kidney disease: Code(s): N18.32 - Chronic kidney disease, stage 3b Status: Chronic Assessment and Plan: recently established care with Dr. Gold for this issue baseline creatinine has been running ~ 1.9 - 2.2mg/dl in the last year (2021) was 1.6mg/dl in 2020 etiology of CKD thought to be seconday to DM, HTN, vascular disease and kidney stones history of bilateral staghorn kidney stones requiring lithotripsies/ureteral stents placement + removal/nephrostomy tubes placement + removal (3) Respiratory failure, acute: Code(s): J96.00 - Acute respiratory failure, unspecified whether with hypoxia or hypercapnia Status: Acute Assessment and Plan: multifactorial: CHF pulmonary edema (secondary to HTN urgency + NSTEMI) MATEUS/OHS pneumonia(?) was on BiPAP in ER - weaned down to nasal cannula s/p IV diuretic therapy for pulmonary edema empirically on antibiotics follow respiratory status (4) Non-ST elevation [place] (NSTEMI): Code(s): I21.4 - Non-ST elevation (NSTEMI) myocardial infarction Status: Acute Assessment and Plan: as noted by evidence to date: EKG with ST and T wave abnormalities elevated troponins chest pain on presentation has clear risk factors for CAD abnormnal stress test 2019 (no follow-up regarding this testing) chest pain free Cardiology following continue medical management (ASA + BB + heparin gtt) follow-up on Echo ischemic evaluation may be limited by renal dysfunction (5) Hypertension: Code(s): I10 - Essential (primary) hypertension Status: Chronic Assessment and Plan: HTN urgency on presentation better control at this time off nitro gtt currently follow trend of hemodynamics with current medications (6) Diabetes type 2, uncontrolled: Code(s): E11.65 - Type 2 diabetes mellitus with hyperglycemia Status: Acute Assessment and Plan: follow accuchecks glycemic control per hospitalist/strategic sourcing manager Greater than 25 minutes was spent in detailed review of his extensive medical records along with the information that the patient was able to provide as well. I will continue to follow the patient with you while he remains hospitalized and make further recommendations during his hospital course. Thank you for allowing me to participate in the care this patient History of Present Illness Reason for Consult Consult date: 01/11/23 Reason for consult: acute renal failure (on chronic kidney disease) Chief Complaint Chief complaint: hypoxic resp failure History of Present Illness Narrative: A great deal the information I have obtained with regard to the patient's past medical history is from review of his electronic medical records at [facility] along with what history the patient was able to provide. The patient is a 67-year-old male with an extensive past medical history as outlined below who presented to [facility] Emergency room with complaints of chest pain in association with shortness of breath. Apparently, for the last 2 days, the patient has been having a burning sensation/ pain in his chest which was intermittent in nature. This chest discomfort was also associated with shortness of breath as well. On the day prior to admission, the chest pain became quite severe and change from intermittent to persistent. His shortness of breath also seemed to deteriorate as well which p
[2023-01-11 12:31] LABS: Glucose Point of Care 184 mg/dl (65-105)
[2023-01-11 12:52] LABS: Partial Thromboplastin Time 34.2 SECONDS (22.3-36.8)
[2023-01-11 13:05] LABS: Cholesterol 323 mg/dL (0-200); HDL Direct 45 mg/dL; Triglycerides 374 mg/dL (<150)
[2023-01-11 13:16] LABS: LDL Cholesterol Direct 170 mg/dL
[2023-01-11 13:21] LABS: Troponin I > 80.000 ng/mL (0.000-0.034)
--- NOTE | 2023-01-11 15:53 | PM.IMPN ---
Progress Note: A&P Assessment and Plan (1) Flash pulmonary edema: Code(s): J81.0 - Acute pulmonary edema Status: Acute Assessment and Plan: Patient came in with acute respiratory failure, blood pressure 150/150, symptoms suggestive flash edema. Patient given Lasix IV and was started on nitro drip. Patient felt better with improvement in blood pressure. Currently denies any chest pain. On review of home meds, there is no listed antihypertensive. Wean off nitro drip as tolerated. We will give the patient beta-viktoriya. Patient in acute kidney injury, will hold off on Brent inhibitors. Patient initially placed on BiPAP in the emergency room, able to talk comfortably with no evidence of tachypnea or shortness of breath currently, weaned off to nasal cannula as tolerated. 01/11/2023 interval history: Morbidly obese with BMI of 54 presented with emergently elevated blood pressure of 250/150 patient was placed on nitro drip, IV Lasix and transferred to ICU with BiPAP, and was also found to have elevated tropes seen by Cardiology patient had a abnormal dobutamine stress test in Jun 2020 however patient did not follow-up with his cardiology, medicine teacher recommended cardiac catheterization with it is not emergent as patient clinical symptoms have improved and he has no chest pain will continue heparin for 48 hours and started the patient on Plavix status and beta-viktoriya, will monitor, patient blood pressure has trended down and he is off nitro drip, currently patient denies any chest pain or shortness of breath, he is on BiPAP (2) Respiratory failure, acute: Code(s): J96.00 - Acute respiratory failure, unspecified whether with hypoxia or hypercapnia Status: Acute Assessment and Plan: Patient came in with florid respiratory failure, improved significantly with Lasix and nitro drip. Currently on BiPAP but saturating 100% with no complaints of further shortness of breath or chest pain. Patient able to talk in full sentences. Wean off as tolerated. Await official chest x-ray reading. Patient with a elevated WBC count of 16,000 on admission, will cover with empiric antibiotics. (3) Non-ST elevation [place] (NSTEMI): Code(s): I21.4 - Non-ST elevation (NSTEMI) myocardial infarction Status: Acute Assessment and Plan: Patient came in with chest pain and shortness of breath, found to be in flash pulmonary edema. EKG shows changes of sinus tachycardia with ST depressions in several leads. Old EKG was over 7 years ago which showed regular sinus rhythm. Unknown if these he changes are new or chronic. Patient had elevated troponin. Referred to cardiology and recommended to start on heparin drip. Continue to trend troponins. Check 2D echo to see ejection fraction. Consider cardiac catheterization. (4) Diabetes type 2, uncontrolled: Code(s): E11.65 - Type 2 diabetes mellitus with hyperglycemia Status: Acute Assessment and Plan: Patient with history of diabetes mellitus and is on high insulin doses at home. He reports blood sugar readings usually in the 130s. Blood sugar on admission elevated. Will monitor Accu-Cheks and cover with sliding scale insulin. Check hemoglobin A1c. Avoid hypoglycemia in setting of acute kidney injury. (5) Acute kidney injury: Code(s): N17.9 - Acute kidney failure, unspecified Status: Acute Assessment and Plan: Under review of labs patient had last creatinine of 1.5 over 3 years ago, unknown what his most recent creatinine was, current creatinine 2.4 here. Will adjust medications according to creatinine clearance. Likely due to uncontrolled hypertension as well as diabetes. Avoid nephrotoxins. Control blood pressure and blood sugar. Plan Admit to ICU Await further cardiology recommendations Subjective Date/time seen: 01/11/23 15:53 Chest pain and shortness of breath HPI-Narrative: Patient is a 67-year-old male with past medical histor
[2023-01-11 16:24] LABS: Troponin I > 80.000 ng/mL (0.000-0.034)
[2023-01-11 17:10] LABS: Glucose Point of Care 176 mg/dl (65-105)
[2023-01-11] MEDS: HEPARIN SOD/D5W 100 UNITS/ML 25,000 UNITS/250 ML BAG 20 UNITS IV CONT (17:11)
[2023-01-11 19:03] LABS: Partial Thromboplastin Time 46.1 SECONDS (22.3-36.8)
[2023-01-11 20:15] LABS: Glucose Point of Care 193 mg/dl (65-105)
[2023-01-12] VITALS (18 sets, daily range): BP systolic 107–140; BP diastolic 56–78; PULSE 56–80; RESP 12–22; TEMP 36.2–37.1; O2SAT 94–98
[2023-01-12 01:30] LABS: Partial Thromboplastin Time 55.2 SECONDS (22.3-36.8)
[2023-01-12] MEDS: HEPARIN SODIUM 5,000 UNITS/ML VIAL 4000 UNITS IV PUSH (01:40)
[2023-01-12] MEDS: HEPARIN SOD/D5W 100 UNITS/ML 25,000 UNITS/250 ML BAG 28 UNITS IV CONT ×3 (01:41→19:34)
[2023-01-12 05:04] LABS: Alveolar/Arterial O2 Gradient 14.7 mmHg; Base Excess ABG -0.5 mEq/l (+/-2.0); Carboxyhemoglobin 0.2 % THb (0-2.0); Fractional Inspired Oxygen 25 %; Methemoglobin ABG 0.3 %THb (0-1.5); Oxygen Content ABG 17.1 %vol (16.0-22.0); Oxygen Saturation ABG 97.3 % (95.0-100.0); Oxyhemoglobin 96.4 % THb (90.0-100.0); PCO2 ABG 50.5 mmHg (35.0-45.0); PO2 ABG 103.6 mmHg (80.0-100.0); PO2 FiO2 Ratio Arterial Blood 4.14 %; Reduced Hemoglobin 3.1 %THb (0-5.0); Total Hemoglobin 12.5 g/dL (12.0-18.0)
[2023-01-12 05:05] LABS: Device NON-INVASIVE VENT; Modified Allen's Test Pass; Non-Invasive Expiratory Pressure 8 CMH2O; Non-Invasive Inspiratory Pressure 16 CMH2O; Non-Invasive Vent Rate 12 /MIN; Site Drawn RIGHT RADIAL
[2023-01-12 09:12] LABS: Hematocrit 37.7 % (42.0-52.0); Hemoglobin 11.6 g/dL (14.0-18.0); Mean Corpuscular HGB Conc 30.8 g/dl (32-36); Mean Corpuscular Hemoglobin 28.8 pg (26-34); Mean Corpuscular Volume 93.5 fl (80-100); Mean Platelet Volume 10.1 fl (7.4-10.4); Platelet Count Result 247 k/mm3 (150-375); Red Blood Count 4.03 M/mm3 (4.6-6.20); Red Cell Distribution Width 13.3 % (11.5-14.5); White Blood Count 11.2 K/mm3 (4.5-10.0)
[2023-01-12] MEDS: DULoxetine HCL 60 MG CAPSULE.DR PO (09:18)
[2023-01-12] MEDS: carvediloL 6.25 MG TABLET PO ×2 (09:18→21:11)
[2023-01-12] MEDS: ASPIRIN 81 MG ENTERIC TABLET PO (09:18)
[2023-01-12] MEDS: CLOPIDOGREL BISULFATE 75 MG TABLET PO (09:19)
[2023-01-12] MEDS: ROSUVASTATIN 10 MG TABLET 40 MG PO (09:19)
[2023-01-12 09:25] LABS: Partial Thromboplastin Time 90.4 SECONDS (22.3-36.8)
[2023-01-12 09:33] LABS: Glucose Point of Care 137 mg/dl (65-105)
--- NOTE | 2023-01-12 09:33 | WPDINTPN ---
Progress Note: A&P Assessment and Plan (1) Respiratory failure, acute: Code(s): J96.00 - Acute respiratory failure, unspecified whether with hypoxia or hypercapnia Status: Acute Assessment and Plan: Acute respiratory failure secondary to congestive heart failure and pulmonary edema Patient was started on BiPAP in the ER In ICU patient has been now weaned down to nasal cannula Continue to monitor Continue BiPAP p.r.n. and CPAP at night for sleep apnea Chest x-ray Mild to moderate bibasilar pulmonary edema. Correlate clinically for infection continue Lasix. Patient had elevated WBC on presentation and in light of chest infiltrates he was started on empiric antibiotics for community-acquired pneumonia. He denied any symptoms suggestive of infection, his WBC has normalized, he has remained afebrile, his procalcitonin level is low. I will hold further antibiotics this time since this appears to be pulmonary edema. Cultures have been sent and are pending. Pending urine Legionella pneumococcal antigen. Pending mycoplasma IgM (2) Flash pulmonary edema: Code(s): J81.0 - Acute pulmonary edema Status: Acute Assessment and Plan: Secondary to hypertensive emergency and non STEMI Improved with Lasix. Continue Lasix today Patient down to nasal cannula now (3) Non-ST elevation [place] (NSTEMI): Code(s): I21.4 - Non-ST elevation (NSTEMI) myocardial infarction Status: Acute Assessment and Plan: EKG reviewed and showed ST T-wave abnormality. Patient had elevated troponin and chest pain He had a stress test done in June of 2020 which was abnormal but he never saw any windlace machine operator following the testing. Patient likely has underlying coronary disease Currently chest pain-free Cardiology following and no plan for cardiac catheterization at this time. Recommend continuing aspirin statin beta-viktoriya and heparin infusion Echocardiogram Summary ? 1. Technically difficult study due to body habitus. ? 2. Left ventricular chamber dimension is normal. ? 3. There is moderately increased left ventricular wall thickness. ? 4. Left ventricular systolic function is severely reduced, estimated at 20-25%. ? 5. The left ventricular diastolic function is grade I diastolic dysfunction. ? 6. Right ventricular systolic function is normal. ? 7. There is trace mitral valve regurgitation. ? 8. There is trace tricuspid valve regurgitation. ? 9. Normal inferior vena cava with >50% collapse upon inspiration consistent with normal right atrial pressure, 3 mmHg. ? 10. There is trivial pericardial effusion (4) Elevated serum creatinine: Code(s): R79.89 - Other specified abnormal findings of blood chemistry Status: Acute Assessment and Plan: Patient presented with creatinine of 2.4, Last recorded creatinine was 1.5 in May of 2020 With history of hypertension diabetes patient likely has chronic kidney disease and not sure if 2.4 is his baseline or this has been acute elevation in creatinine Patient has elevated CK level at 1321 which could be secondary to myocardial infarction Patient mentioned history of kidney stones and kidney stents. Renal ultrasound showed Mild right hydronephrosis. Sensitivity and specificity are decreased by obesity. Will obtain CT and consult Urology if needed Nephrology following Monitor urine output electrolytes and creatinine Continue Lasix Repeat BMP pending today (5) Diabetes type 2, uncontrolled: Code(s): E11.65 - Type 2 diabetes mellitus with hyperglycemia Status: Acute Assessment and Plan: Start diabetic diet Continue sliding scale and Lantus (6) Hyperlipidemia: Code(s): E78.5 - Hyperlipidemia, unspecified Status: Acute Assessment and Plan: Continue rosuvastatin (7) MATEUS (obstructive sleep apnea): Code(s): G47.33 - Obstructive sleep apnea (adult) (pediatric) Status: Acute Assessment and Plan: Nightly cPAP ordered (8) H
[2023-01-12 09:35] LABS: Alanine Aminotransferase 38 U/L (6-50); Albumin Level 3.3 g/dL (3.5-5.1); Alkaline Phosphatase 51 U/L (38-126); Anion Gap 2 mmol/L (8-16); Aspartate Amino Transferase 135 U/L (17-59); Bilirubin,Total 0.7 mg/dL (0.2-1.3); Blood Urea Nitrogen 45 mg/dL (9-20); Calcium 10.3 mg/dL (8.4-10.2); Carbon Dioxide 28 mmol/L (22-30); Chloride 106 mmol/L (98-107); Estimated CRCL calculation 49 ml/min; Estimated Glomerular Filt Rate 26; Glucose 138 mg/dL (65-110); Magnesium 1.9 mg/dL (1.6-2.3); Potassium 4.8 mmol/L (3.4-5.0); Sodium 136 mmol/L (137-145)
--- NOTE | 2023-01-12 09:41 | PM.PNCARD ---
Progress Note: A&P Assessment and Plan (1) Non-ST elevation CT (NSTEMI): Code(s): I21.4 - Non-ST elevation (NSTEMI) myocardial infarction Status: Acute Assessment and Plan: Patient had a dobutamine stress test in 06/2020 that showed moderate-severe infarct involving the RCA territory and mild ischemia in the LCX territory. LVEF at that time 63%. It does not appear patient ever followed up with anyone regarding the abnormal stress test. Troponin trend: 0.190 --> 25.3 --> 70.3 --> >80 Recommended cardiac cath, however, cannot pursue at this time given DEE with SCr of 2.5. No urgency for cath at this time as patient is now asymptomatic without any chest pain. Continue Heparin drip x 48 hours (due to be discontinued tonight around midnight). ASA 81mg once daily. Plavix 75mg once daily. High-intensity statin. Beta viktoriya. Echo 01/11/2023 showed severely reduced LVSF, EF 20 - 25%, grade I diastolic dysfunction. No significant valvular abnormalities Will need LifeVest before discharge GDMT with Entresto, jardiance, and spironolactone when renal function improves (2) Hypertensive emergency: Code(s): I16.1 - Hypertensive emergency Status: Acute Assessment and Plan: SBP 258/150mmHg on arrival. Improved with NTG drip. Now normotensive and off of NTG drip. Continue with Carvedilol. Cannot use ACEi/ARB for blood pressure control at this time due to DEE. Would start CCB if blood pressure control needed. (3) Acute kidney injury: Code(s): N17.9 - Acute kidney failure, unspecified Status: Acute Assessment and Plan: Scr of 2.5. Baseline unknown, but no known history of CKD. (4) Flash pulmonary edema: Code(s): J81.0 - Acute pulmonary edema Status: Acute Assessment and Plan: Resolved with BIPAP, NTG drip, Lasix. Intermittent Lasix as needed to maintain euvolemia. (5) Respiratory failure, acute: Code(s): J96.00 - Acute respiratory failure, unspecified whether with hypoxia or hypercapnia Status: Acute Assessment and Plan: Improved. Now on supplemental O2 per nasal cannula. (6) Diabetes type 2, uncontrolled: Code(s): E11.65 - Type 2 diabetes mellitus with hyperglycemia Status: Acute Assessment and Plan: Will check A1c (7) Hyperlipidemia: Code(s): E78.5 - Hyperlipidemia, unspecified Status: Acute Assessment and Plan: Continue high-intensity statin (8) MATEUS (obstructive sleep apnea): Code(s): G47.33 - Obstructive sleep apnea (adult) (pediatric) Status: Acute Assessment and Plan: Will need CPAP when sleeping. Subjective Date/time seen: 01/12/23 09:41 Cardiology follow up for NSTEMI, cardiomyopathy No acute events overnight. He does not have any complaints this morning except he is thirsty and wants water. Denies any chest pain, shortness of breath, or palpitations. Review of Systems Review of Systems: All systems reviewed & are unremarkable except as noted in HPI and below (HPI) Exam Const: General: comfortable and no acute distress Other: Morbidly obese HENMT: Mouth: Yes moist mucous membranes Eyes: General: appearance normal, both eyes and all related structures Sclera: sclerae normal Neck: Neck: supple Other: Cannot assess JVD due to body habitus Resp: Effort & Inspection: normal respiratory effort Auscultation: clear to auscultation bilaterally Other: Decreased breath sounds bilaterally. Cardio: Rate: regular rate Rhythm: regular rhythm Heart sounds: no murmurs GI: Other: Obese abdomen Skin: General skin exam: normal color Neuro: Speech: normal speech Extrem: General: normal to inspection Psych: Mental Status: mental status grossly normal Affect: normal affect Objective Data Vital Signs Vital Signs: Vital Signs - 24 hr 01/11/23 09:50 01/11/23 09:56 01/11/23 10:27 Temperature Pulse Rate 71 75 69 Respiratory Rate 15
--- NOTE | 2023-01-12 10:09 | P.PNNP_ITS ---
Progress Note: A&P Assessment and Plan (1) Acute kidney injury: Code(s): N17.9 - Acute kidney failure, unspecified Status: Acute Assessment and Plan: * creatinine a tad higher that baseline (see #2) * however, rather than an acute insult, this may just be an element of CKD progression * depressed EF likely contributing to this as well (an element of cardiorenal syndrome) * follow-up on pending testing (urine electrolytes, renal ultrasound...etc) * follow repeat labs and UOP (2) Stage 3b chronic kidney disease: Code(s): N18.32 - Chronic kidney disease, stage 3b Status: Chronic Assessment and Plan: * recently established care with Dr. Gold for this issue * baseline creatinine has been running ~ 1.9 - 2.2mg/dl in the last year (2021) * was 1.5 - 1.6mg/dl in 2020 (arguing in favor of some disease progression) * new cardiomyopathy (low EF) probably contributing to higher creatinine as well * etiology of CKD thought to be secondary to DM, HTN, vascular disease and kidney stones * history of bilateral staghorn kidney stones requiring lithotripsies/uret eral stents placement + removal/nephrostomy tubes placement + removal (3) Respiratory failure, acute: Code(s): J96.00 - Acute respiratory failure, unspecified whether with hypoxia or hypercapnia Status: Acute Assessment and Plan: * improving/resolving * multifactorial: * CHF * pulmonary edema (secondary to HTN urgency + NSTEMI) * MATEUS/OHS * pneumonia(?) * was on BiPAP in ER - weaned down to nasal cannula * s/p IV diuretic therapy for pulmonary edema * empirically on antibiotics for possible pneumonia * follow respiratory status (4) Non-ST elevation [place] (NSTEMI): Code(s): I21.4 - Non-ST elevation (NSTEMI) myocardial infarction Status: Acute Assessment and Plan: * as noted by evidence to date: * EKG with ST and T wave abnormalities * elevated troponins * chest pain on presentation * has clear risk factors for CAD * abnormnal stress test 2019 (no follow-up regarding this testing) * chest pain free currently * Cardiology following * continue medical management (ASA + BB + statin+ heparin gtt) * Echo results noted -- EF ~ 20 - 25% * ischemic evaluation limited by renal dysfunction (5) Hypertension: Code(s): I10 - Essential (primary) hypertension Status: Chronic Assessment and Plan: * HTN urgency on presentation * better control at this time * off nitro gtt currently * follow trend of hemodynamics with current medications (6) Diabetes type 2, uncontrolled: Code(s): E11.65 - Type 2 diabetes mellitus with hyperglycemia Status: Acute Assessment and Plan: * follow accuchecks * glycemic control per hospitalist/front clerk Will continue to follow. Subjective Date/time seen: 01/12/23 10:09 No acute issues or problems overnight or earlier this morning; no complaints of chest pain or shortness of breath; stable hemodynamics off nitroglycerin gtt; remains on supplemental oxygen but respiratory status seems relatively stable; remains on heparin gtt. Exam Narrative: General: WD/WN Caucasin male in NAD Heart: normal S1 and S2; no rub Lungs: clear to auscultation Abdomen: soft, nontender, nondistended, positive bowel sounds Extremities: no cyanosis or clubbing; no edema Skin: warm and dry Objective Data Vital Signs Vital Signs:
--- NOTE | 2023-01-12 10:09 | PM.PNNEP ---
Progress Note: A&P Assessment and Plan (1) Acute kidney injury: Code(s): N17.9 - Acute kidney failure, unspecified Status: Acute Assessment and Plan: creatinine a tad higher that baseline (see #2) however, rather than an acute insult, this may just be an element of CKD progression depressed EF likely contributing to this as well (an element of cardiorenal syndrome) follow-up on pending testing (urine electrolytes, renal ultrasound...etc) follow repeat labs and UOP (2) Stage 3b chronic kidney disease: Code(s): N18.32 - Chronic kidney disease, stage 3b Status: Chronic Assessment and Plan: recently established care with Dr. Gold for this issue baseline creatinine has been running ~ 1.9 - 2.2mg/dl in the last year (2021) was 1.5 - 1.6mg/dl in 2020 (arguing in favor of some disease progression) new cardiomyopathy (low EF) probably contributing to higher creatinine as well etiology of CKD thought to be secondary to DM, HTN, vascular disease and kidney stones history of bilateral staghorn kidney stones requiring lithotripsies/ureteral stents placement + removal/nephrostomy tubes placement + removal (3) Respiratory failure, acute: Code(s): J96.00 - Acute respiratory failure, unspecified whether with hypoxia or hypercapnia Status: Acute Assessment and Plan: improving/resolving multifactorial: CHF pulmonary edema (secondary to HTN urgency + NSTEMI) MATEUS/OHS pneumonia(?) was on BiPAP in ER - weaned down to nasal cannula s/p IV diuretic therapy for pulmonary edema empirically on antibiotics for possible pneumonia follow respiratory status (4) Non-ST elevation [place] (NSTEMI): Code(s): I21.4 - Non-ST elevation (NSTEMI) myocardial infarction Status: Acute Assessment and Plan: as noted by evidence to date: EKG with ST and T wave abnormalities elevated troponins chest pain on presentation has clear risk factors for CAD abnormnal stress test 2019 (no follow-up regarding this testing) chest pain free currently Cardiology following continue medical management (ASA + BB + statin+ heparin gtt) Echo results noted -- EF ~ 20 - 25% ischemic evaluation limited by renal dysfunction (5) Hypertension: Code(s): I10 - Essential (primary) hypertension Status: Chronic Assessment and Plan: HTN urgency on presentation better control at this time off nitro gtt currently follow trend of hemodynamics with current medications (6) Diabetes type 2, uncontrolled: Code(s): E11.65 - Type 2 diabetes mellitus with hyperglycemia Status: Acute Assessment and Plan: follow accuchecks glycemic control per hospitalist/diesel maintenance technician Will continue to follow. Subjective Date/time seen: 01/12/23 10:09 No acute issues or problems overnight or earlier this morning; no complaints of chest pain or shortness of breath; stable hemodynamics off nitroglycerin gtt; remains on supplemental oxygen but respiratory status seems relatively stable; remains on heparin gtt. Exam Narrative: General: WD/WN Caucasin male in NAD Heart: normal S1 and S2; no rub Lungs: clear to auscultation Abdomen: soft, nontender, nondistended, positive bowel sounds Extremities: no cyanosis or clubbing; no edema Skin: warm and dry Objective Data Vital Signs Vital Signs: Vital Signs Temp Pulse Resp BP Pulse Ox O2 Del Method O2 Flow Rate 01/12/23 08:52 132/68 01/12/23 09:18 65 01/12/23 08:00 98.4 F 60 12 132/61 97 01/12/23 08:46 97 Nasal Cannula 2 01/12/23 06:00 56 L 17 120/57 L 96 01/12/23 06:00 57 L 01/12/23 04:00 62 01/12/23 04:00 80 21 H 98 BiPAP 01/12/23 04:00 98 F 62 15 137/63 97 01/12/23 05:07 80 21 H 98 BiPAP 01/12/23 02:00 60 01/12/23 02:00 60 20 124/67 97 01/12/23 00:00 65 01/12/23 00:00 65 19 96 B
[2023-01-12] MEDS: FUROSEMIDE INJ 40 MG/4 ML VIAL IV PUSH (10:17)
[2023-01-12 11:42] LABS: Glucose Point of Care 138 mg/dl (65-105)
[2023-01-12 11:58] LABS: Creatinine Urine 48.8 mg/dL
[2023-01-12 12:08] LABS: Creatinine Urine 50.4 mg/dL
[2023-01-12 12:10] LABS: Sodium Urine Random 109 meq/L
[2023-01-12 12:14] LABS: Urea Random Urine 273 MG/DL
[2023-01-12 12:33] LABS: Total Protein Urine Random > 500 mg/dL
[2023-01-12 12:46] LABS: Eosinophil Urine Rare % (None Seen)
[2023-01-12 12:53] LABS: Urine Eos QC 2nd Tech Confirmed
[2023-01-12 13:06] LABS: Total Protein Urine Random > 500 mg/dL
--- NOTE | 2023-01-12 15:06 | PM.IMPN ---
Progress Note: A&P Assessment and Plan (1) Flash pulmonary edema: Code(s): J81.0 - Acute pulmonary edema Status: Acute Assessment and Plan: Patient came in with acute respiratory failure, blood pressure 150/150, symptoms suggestive flash edema. Patient given Lasix IV and was started on nitro drip. Patient felt better with improvement in blood pressure. Currently denies any chest pain. On review of home meds, there is no listed antihypertensive. Wean off nitro drip as tolerated. We will give the patient beta-viktoriya. Patient in acute kidney injury, will hold off on Brent inhibitors. Patient initially placed on BiPAP in the emergency room, able to talk comfortably with no evidence of tachypnea or shortness of breath currently, weaned off to nasal cannula as tolerated. 01/12/2023 interval history: Morbidly obese with BMI of 54 presented with emergently elevated blood pressure of 250/150 patient was placed on nitro drip, IV Lasix and transferred to ICU with BiPAP, and was also found to have elevated tropes seen by Cardiology patient had a abnormal dobutamine stress test in Jun 2020 however patient did not follow-up with his cardiology, last greaser recommended cardiac catheterization with it is not emergent as patient clinical symptoms have improved and he has no chest pain will continue heparin for 48 hours and started the patient on Plavix status and beta-viktoriya, will monitor, patient blood pressure has trended down and he is off nitro drip, currently patient denies any chest pain or shortness of breath, he is off BiPAP, his clinical symptoms have improved will transfer patient out of ICU, patient is present in the room and gave updates (2) Respiratory failure, acute: Code(s): J96.00 - Acute respiratory failure, unspecified whether with hypoxia or hypercapnia Status: Acute Assessment and Plan: Patient came in with florid respiratory failure, improved significantly with Lasix and nitro drip. Currently on BiPAP but saturating 100% with no complaints of further shortness of breath or chest pain. Patient able to talk in full sentences. Wean off as tolerated. Await official chest x-ray reading. Patient with a elevated WBC count of 16,000 on admission, will cover with empiric antibiotics. (3) Non-ST elevation [place] (NSTEMI): Code(s): I21.4 - Non-ST elevation (NSTEMI) myocardial infarction Status: Acute Assessment and Plan: Patient came in with chest pain and shortness of breath, found to be in flash pulmonary edema. EKG shows changes of sinus tachycardia with ST depressions in several leads. Old EKG was over 7 years ago which showed regular sinus rhythm. Unknown if these he changes are new or chronic. Patient had elevated troponin. Referred to cardiology and recommended to start on heparin drip. Continue to trend troponins. Check 2D echo to see ejection fraction. Consider cardiac catheterization. (4) Diabetes type 2, uncontrolled: Code(s): E11.65 - Type 2 diabetes mellitus with hyperglycemia Status: Acute Assessment and Plan: Patient with history of diabetes mellitus and is on high insulin doses at home. He reports blood sugar readings usually in the 130s. Blood sugar on admission elevated. Will monitor Accu-Cheks and cover with sliding scale insulin. Check hemoglobin A1c. Avoid hypoglycemia in setting of acute kidney injury. (5) Acute kidney injury: Code(s): N17.9 - Acute kidney failure, unspecified Status: Acute Assessment and Plan: Under review of labs patient had last creatinine of 1.5 over 3 years ago, unknown what his most recent creatinine was, current creatinine 2.4 here. Will adjust medications according to creatinine clearance. Likely due to uncontrolled hypertension as well as diabetes. Avoid nephrotoxins. Control blood pressure and blood sugar. Plan Admit to ICU Await further cardiology recommendations Subjective Date/time seen: 0
[2023-01-12 15:53] LABS: Partial Thromboplastin Time 84.5 SECONDS (22.3-36.8)
--- NOTE | 2023-01-12 16:16 | PC.NURSE ---
Report given at bedside to SAYDA Morel at 1615.
[2023-01-12 16:32] LABS: Glucose Point of Care 140 mg/dl (65-105)
[2023-01-12 17:13] LABS: Glucose Point of Care 146 mg/dl (65-105)
[2023-01-12 20:06] LABS: Glucose Point of Care 154 mg/dl (65-105)
[2023-01-13] VITALS (18 sets, daily range): BP systolic 108–150; BP diastolic 53–78; PULSE 54–66; RESP 16–23; TEMP 36.1–36.6; O2SAT 94–100
[2023-01-13] MEDS: MELATONIN 5 MG TABLET PO (00:40)
[2023-01-13] MEDS: HEPARIN SOD/D5W 100 UNITS/ML 25,000 UNITS/250 ML BAG 28 UNITS IV CONT ×3 (03:10→19:46)
[2023-01-13 05:17] LABS: Hematocrit 37.1 % (42.0-52.0); Hemoglobin 11.6 g/dL (14.0-18.0); Mean Corpuscular HGB Conc 31.3 g/dl (32-36); Mean Corpuscular Hemoglobin 28.6 pg (26-34); Mean Corpuscular Volume 91.4 fl (80-100); Platelet Count Result 247 k/mm3 (150-375); Red Blood Count 4.06 M/mm3 (4.6-6.20); Red Cell Distribution Width 13.1 % (11.5-14.5)
[2023-01-13 05:32] LABS: Alanine Aminotransferase 30 U/L (6-50); Albumin Level 3.3 g/dL (3.5-5.1); Alkaline Phosphatase 56 U/L (38-126); Anion Gap 3 mmol/L (8-16); Aspartate Amino Transferase 61 U/L (17-59); Bilirubin,Total 0.6 mg/dL (0.2-1.3); Blood Urea Nitrogen 46 mg/dL (9-20); Calcium 9.6 mg/dL (8.4-10.2); Carbon Dioxide 30 mmol/L (22-30); Chloride 102 mmol/L (98-107); Creatine Kinase 183 U/L (55-170); Estimated CRCL calculation 44 ml/min; Estimated Glomerular Filt Rate 23; Glucose 127 mg/dL (65-110); Magnesium 1.8 mg/dL (1.6-2.3); Potassium 4.2 mmol/L (3.4-5.0); Sodium 135 mmol/L (137-145)
[2023-01-13 05:34] LABS: Alveolar/Arterial O2 Gradient 16.9 mmHg; Base Excess ABG 1.1 mEq/l (+/-2.0); Carboxyhemoglobin 1.7 % THb (0-2.0); Fractional Inspired Oxygen 21 %; HCO3 ABG 25.6 mEq/l (22.0-26.0); Methemoglobin ABG 0.3 %THb (0-1.5); Oxygen Content ABG 16.3 %vol (16.0-22.0); Oxygen Saturation ABG 96.6 % (95.0-100.0); Oxyhemoglobin 95.2 % THb (90.0-100.0); PCO2 ABG 40.3 mmHg (35.0-45.0); PO2 ABG 84.6 mmHg (80.0-100.0); PO2 FiO2 Ratio Arterial Blood 4.03 %; Reduced Hemoglobin 2.8 %THb (0-5.0); Total Hemoglobin 12.1 g/dL (12.0-18.0); pH ABG 7.421 (7.350-7.450)
[2023-01-13 05:57] LABS: Modified Allen's Test Pass; Site Drawn LEFT RADIAL
[2023-01-13 08:11] LABS: Glucose Point of Care 139 mg/dl (65-105)
[2023-01-13] MEDS: CLOPIDOGREL BISULFATE 75 MG TABLET PO (08:22)
[2023-01-13] MEDS: ASPIRIN 81 MG ENTERIC TABLET PO (08:22)
[2023-01-13] MEDS: ROSUVASTATIN 10 MG TABLET 40 MG PO (08:22)
[2023-01-13] MEDS: carvediloL 6.25 MG TABLET PO ×2 (08:22→19:46)
[2023-01-13] MEDS: DULoxetine HCL 60 MG CAPSULE.DR PO (08:22)
--- NOTE | 2023-01-13 10:34 | P.PNNP_ITS ---
Progress Note: A&P Assessment and Plan (1) Acute kidney injury: Code(s): N17.9 - Acute kidney failure, unspecified Status: Acute Assessment and Plan: * creatinine up compared to baseline (see #2) * however, rather than an acute insult, there may just be an element of CKD progression * his newly depressed EF and NSTEMI likely contributing to this as well (an element of cardiorenal syndrome) * evaluation to date: * renal ultrasound with mild right hydronephrosis * CT of abd/pelvis mentions no hydronephrosis * nephrotic range proteinuria noted * CPK mildly elevated but suspect related to NSTEMI * FeUrea suggest prerenal azotemia (but that likely a reflection of his depressed EF) * follow repeat labs and UOP (2) Stage 3b chronic kidney disease: Code(s): N18.32 - Chronic kidney disease, stage 3b Status: Chronic Assessment and Plan: * recently established care with Dr. Gold for this issue * baseline creatinine has been running ~ 1.9 - 2.2mg/dl in the last year (2021) * was 1.5 - 1.6mg/dl in 2020 (arguing in favor of some disease progression) * new cardiomyopathy (low EF) + recent NSTEMI probably contributing to higher creatinine as well * etiology of CKD thought to be secondary to DM, HTN, vascular disease and kidney stones * history of bilateral staghorn kidney stones requiring lithotripsies/ureteral stents placement + removal/nephrostomy tubes placement + removal (3) Respiratory failure, acute: Code(s): J96.00 - Acute respiratory failure, unspecified whether with hypoxia or hypercap jena Status: Acute Assessment and Plan: * improving/resolving * multifactorial: * CHF * pulmonary edema (secondary to HTN urgency + NSTEMI) * MATEUS/OHS * pneumonia(?) * was on BiPAP in ER - weaned down to nasal cannula * s/p IV diuretic therapy for pulmonary edema * was on empiric antibiotics for possible pneumonia but discontinued * follow respiratory status (4) Non-ST elevation [place] (NSTEMI): Code(s): I21.4 - Non-ST elevation (NSTEMI) myocardial infarction Status: Acute Assessment and Plan: * as noted by evidence to date: * EKG with ST and T wave abnormalities * elevated troponins * chest pain on presentation * has clear risk factors for CAD * abnormnal stress test 2019 (no follow-up regarding this testing) * chest pain free currently * Cardiology following * continue medical management (ASA + BB + statin+ heparin gtt) * Echo results noted -- EF ~ 20 - 25% * ischemic evaluation limited by renal dysfunction (5) Hypertension: Code(s): I10 - Essential (primary) hypertension Status: Chronic Assessment and Plan: * HTN urgency on presentation * better control at this time * follow trend of hemodynamics with current medications (6) Diabetes type 2, uncontrolled: Code(s): E11.65 - Type 2 diabetes mellitus with hyperglycemia Status: Acute Assessment and Plan: * follow accuchecks * glycemic control per hospitalist/gasoline attendant Will continue to follow. Subjective Date/time seen: 01/13/23 10:34 No apparent distress voiced at the time of my visit; transferred out of ICU; no further episodes of chest pain or shortness of breath to report; no issues/events overnight or earlier this morning; only real complaints is difficulty sleeping last night. Exam Narrative: General: WD/WN male in NAD Heart: normal S1 and S2; no rub Lungs: cl
--- NOTE | 2023-01-13 10:34 | PM.PNNEP ---
Progress Note: A&P Assessment and Plan (1) Acute kidney injury: Code(s): N17.9 - Acute kidney failure, unspecified Status: Acute Assessment and Plan: creatinine up compared to baseline (see #2) however, rather than an acute insult, there may just be an element of CKD progression his newly depressed EF and NSTEMI likely contributing to this as well (an element of cardiorenal syndrome) evaluation to date: renal ultrasound with mild right hydronephrosis CT of abd/pelvis mentions no hydronephrosis nephrotic range proteinuria noted CPK mildly elevated but suspect related to NSTEMI FeUrea suggest prerenal azotemia (but that likely a reflection of his depressed EF) follow repeat labs and UOP (2) Stage 3b chronic kidney disease: Code(s): N18.32 - Chronic kidney disease, stage 3b Status: Chronic Assessment and Plan: recently established care with Dr. Gold for this issue baseline creatinine has been running ~ 1.9 - 2.2mg/dl in the last year (2021) was 1.5 - 1.6mg/dl in 2020 (arguing in favor of some disease progression) new cardiomyopathy (low EF) + recent NSTEMI probably contributing to higher creatinine as well etiology of CKD thought to be secondary to DM, HTN, vascular disease and kidney stones history of bilateral staghorn kidney stones requiring lithotripsies/ureteral stents placement + removal/nephrostomy tubes placement + removal (3) Respiratory failure, acute: Code(s): J96.00 - Acute respiratory failure, unspecified whether with hypoxia or hypercapnia Status: Acute Assessment and Plan: improving/resolving multifactorial: CHF pulmonary edema (secondary to HTN urgency + NSTEMI) MATEUS/OHS pneumonia(?) was on BiPAP in ER - weaned down to nasal cannula s/p IV diuretic therapy for pulmonary edema was on empiric antibiotics for possible pneumonia but discontinued follow respiratory status (4) Non-ST elevation [place] (NSTEMI): Code(s): I21.4 - Non-ST elevation (NSTEMI) myocardial infarction Status: Acute Assessment and Plan: as noted by evidence to date: EKG with ST and T wave abnormalities elevated troponins chest pain on presentation has clear risk factors for CAD abnormnal stress test 2019 (no follow-up regarding this testing) chest pain free currently Cardiology following continue medical management (ASA + BB + statin+ heparin gtt) Echo results noted -- EF ~ 20 - 25% ischemic evaluation limited by renal dysfunction (5) Hypertension: Code(s): I10 - Essential (primary) hypertension Status: Chronic Assessment and Plan: HTN urgency on presentation better control at this time follow trend of hemodynamics with current medications (6) Diabetes type 2, uncontrolled: Code(s): E11.65 - Type 2 diabetes mellitus with hyperglycemia Status: Acute Assessment and Plan: follow accuchecks glycemic control per hospitalist/beach attendant Will continue to follow. Subjective Date/time seen: 01/13/23 10:34 No apparent distress voiced at the time of my visit; transferred out of ICU; no further episodes of chest pain or shortness of breath to report; no issues/events overnight or earlier this morning; only real complaints is difficulty sleeping last night. Exam Narrative: General: WD/WN male in NAD Heart: normal S1 and S2; no rub Lungs: clear anteriorly; decreased at bases Abdomen: soft, nontender, nondistended, positive bowel sounds Extremities: no cyanosis or clubbing; no edema Skin: warm and intact Objective Data Vital Signs Vital Signs: Vital Signs Temp Pulse Resp BP Pulse Ox O2 Del Method O2 Flow Rate 01/13/23 10:00 61 01/13/23 09:35 95 Nasal Cannula 3 01/13/23 08:00 64 01/13/23 08:00 97 Nasal Cannula 3 01/13/23 08:22 63 01/13/23 08:00 96.9 F L 57 L 16 137/71 96 01/13/23 06:00 60
[2023-01-13 11:44] LABS: Glucose Point of Care 161 mg/dl (65-105)
--- NOTE | 2023-01-13 12:32 | PM.PNCARD ---
Progress Note: A&P Assessment and Plan (1) Non-ST elevation [place] (NSTEMI): Code(s): I21.4 - Non-ST elevation (NSTEMI) myocardial infarction Status: Acute Assessment and Plan: Patient had a dobutamine stress test in 06/2020 that showed moderate-severe infarct involving the RCA territory and mild ischemia in the LCX territory. LVEF at that time 63%. It does not appear patient ever followed up with anyone regarding the abnormal stress test. Current LVEF 20-25%. Troponin trend: 0.190 --> 25.3 --> 70.3 --> >80 Invasive ischemic evaluation with cardiac catheterization on hold due to renal insufficiency. Continue aspirin, clopidogrel, beta-viktoriya, statin. GDMT with Entresto, jardiance, and spironolactone when renal function improves. Life vest at discharge. (2) Hypertensive emergency: Code(s): I16.1 - Hypertensive emergency Status: Acute Assessment and Plan: SBP 258/150mmHg on arrival. Improved with NTG drip. Now normotensive and off of NTG drip. Continue with Carvedilol. Cannot use ACEi/ARB/ARNI for blood pressure control at this time due to DEE. Would start CCB if blood pressure control needed. (3) Acute kidney injury: Code(s): N17.9 - Acute kidney failure, unspecified Status: Acute Assessment and Plan: Scr of 2.5. Baseline unknown, but no known history of CKD. (4) Flash pulmonary edema: Code(s): J81.0 - Acute pulmonary edema Status: Acute Assessment and Plan: Resolved with BIPAP, NTG drip, Lasix. Intermittent Lasix as needed to maintain euvolemia. (5) Respiratory failure, acute: Code(s): J96.00 - Acute respiratory failure, unspecified whether with hypoxia or hypercapnia Status: Acute Assessment and Plan: Improved. Now on supplemental O2 per nasal cannula. (6) Diabetes type 2, uncontrolled: Code(s): E11.65 - Type 2 diabetes mellitus with hyperglycemia Status: Acute Assessment and Plan: Will check A1c (7) Hyperlipidemia: Code(s): E78.5 - Hyperlipidemia, unspecified Status: Acute Assessment and Plan: Continue high-intensity statin (8) MATEUS (obstructive sleep apnea): Code(s): G47.33 - Obstructive sleep apnea (adult) (pediatric) Status: Acute Assessment and Plan: Will need CPAP or BiPAP when sleeping, management per primary team. Time Spent With Patient Time with patient: 25 - 35 minutes Subjective Date/time seen: 01/13/23 12:32 Interval history: Date of service: 01/13/2023 Interval history: Patient lying down in the bed, appears somewhat somnolent. He states that he did not sleep well last night. Currently on BiPAP. Denies chest pain. Exam Narrative: PHYSICAL EXAMINATION: GENERAL: Somnolent, morbidly obese MENTAL STATUS: Somnolent EYES: Extraocular movements intact, no pallor EARS: External ears appear normal, hearing grossly normal NOSE: BiPAP in place MOUTH: BiPAP in place NECK: Thick neck CHEST: Diffuse rhonchi HEART: Normal rate, regular rhythm, distant heart sounds due to body habitus ABDOMEN: Obese, nontender NEUROLOGICAL: Alert, oriented, normal speech, no gross motor deficits MUSCULOSKELETAL: No major deformity, no amputation EXTREMITIES: Pedal edema with stasis dermatitis SKIN: Eczema lower extremities PSYCHIATRIC: Normal mood, appropriate affect Objective Data Vital Signs Vital Signs: Vital Signs - 24 hr 01/12/23 14:00 01/12/23 14:00 01/12/23 16:00 Temperature Pulse Rate 67 65 Respiratory Rate 20 Blood Pressure 119/56 L Pulse Oximetry 97 94 Oxygen Delivery Room Air Oxygen Flow Rate Fraction of Inspired Oxygen 01/12/23 16:00 01/12/23 16:00 01/12/23 18:00 Temperature 36.6 C Pulse Rate 61 60 64 Respiratory Rate 15 Blood Pressure 107/66 Pulse Oximetry 95 Oxygen Delivery Oxygen Flow Rate Fraction of Inspired Oxygen 01/12/23 21:11 01/12/23 20:00 01/12/23
--- NOTE | 2023-01-13 15:05 | PM.IMPN ---
Progress Note: A&P Assessment and Plan (1) Flash pulmonary edema: Code(s): J81.0 - Acute pulmonary edema Status: Acute Assessment and Plan: Patient came in with acute respiratory failure, blood pressure 150/150, symptoms suggestive flash edema. Patient given Lasix IV and was started on nitro drip. Patient felt better with improvement in blood pressure. Currently denies any chest pain. On review of home meds, there is no listed antihypertensive. Wean off nitro drip as tolerated. We will give the patient beta-viktoriya. Patient in acute kidney injury, will hold off on Brent inhibitors. Patient initially placed on BiPAP in the emergency room, able to talk comfortably with no evidence of tachypnea or shortness of breath currently, weaned off to nasal cannula as tolerated. 01/13/2023 interval history: Morbidly obese with BMI of 54 presented with emergently elevated blood pressure of 250/150 patient was placed on nitro drip, IV Lasix and transferred to ICU with BiPAP, and was also found to have elevated tropes seen by Cardiology patient had a abnormal dobutamine stress test in Jun 2020 however patient did not follow-up with his cardiology, public address system mechanic recommended cardiac catheterization with it is not emergent as patient clinical symptoms have improved and he has no chest pain will continue heparin for 48 hours and started the patient on Plavix status and beta-viktoriya, will monitor, patient blood pressure has trended down and he is off nitro drip, currently patient denies any chest pain or shortness of breath, he is off BiPAP, his clinical symptoms have improved he was transferred out of ICU to IMU on 01/12, will have a PT OT evaluate the patient patient will benefit with acute rehab will continue to monitor (2) Respiratory failure, acute: Code(s): J96.00 - Acute respiratory failure, unspecified whether with hypoxia or hypercapnia Status: Acute Assessment and Plan: Patient came in with florid respiratory failure, improved significantly with Lasix and nitro drip. Currently on BiPAP but saturating 100% with no complaints of further shortness of breath or chest pain. Patient able to talk in full sentences. Wean off as tolerated. Await official chest x-ray reading. Patient with a elevated WBC count of 16,000 on admission, will cover with empiric antibiotics. (3) Non-ST elevation [place] (NSTEMI): Code(s): I21.4 - Non-ST elevation (NSTEMI) myocardial infarction Status: Acute Assessment and Plan: Patient came in with chest pain and shortness of breath, found to be in flash pulmonary edema. EKG shows changes of sinus tachycardia with ST depressions in several leads. Old EKG was over 7 years ago which showed regular sinus rhythm. Unknown if these he changes are new or chronic. Patient had elevated troponin. Referred to cardiology and recommended to start on heparin drip. Continue to trend troponins. Check 2D echo to see ejection fraction. Consider cardiac catheterization. (4) Diabetes type 2, uncontrolled: Code(s): E11.65 - Type 2 diabetes mellitus with hyperglycemia Status: Acute Assessment and Plan: Patient with history of diabetes mellitus and is on high insulin doses at home. He reports blood sugar readings usually in the 130s. Blood sugar on admission elevated. Will monitor Accu-Cheks and cover with sliding scale insulin. Check hemoglobin A1c. Avoid hypoglycemia in setting of acute kidney injury. (5) Acute kidney injury: Code(s): N17.9 - Acute kidney failure, unspecified Status: Acute Assessment and Plan: Under review of labs patient had last creatinine of 1.5 over 3 years ago, unknown what his most recent creatinine was, current creatinine 2.4 here. Will adjust medications according to creatinine clearance. Likely due to uncontrolled hypertension as well as diabetes. Avoid nephrotoxins. Control blood pressure and blood sugar. Plan Admit to ICU Await further
[2023-01-13 16:20] LABS: Glucose Point of Care 178 mg/dl (65-105)
[2023-01-13 20:09] LABS: Glucose Point of Care 179 mg/dl (65-105)
[2023-01-14] VITALS (20 sets, daily range): BP systolic 131–143; BP diastolic 58–76; PULSE 54–70; RESP 12–22; TEMP 35.6–36.5; O2SAT 94–100
[2023-01-14] MEDS: HEPARIN SOD/D5W 100 UNITS/ML 25,000 UNITS/250 ML BAG 28 UNITS IV CONT ×2 (04:35→19:27)
[2023-01-14 05:02] LABS: Hematocrit 35.3 % (42.0-52.0); Hemoglobin 11.2 g/dL (14.0-18.0); Mean Corpuscular HGB Conc 31.7 g/dl (32-36); Mean Corpuscular Hemoglobin 28.7 pg (26-34); Mean Corpuscular Volume 90.5 fl (80-100); Mean Platelet Volume 10.1 fl (7.4-10.4); Platelet Count Result 237 k/mm3 (150-375); Red Cell Distribution Width 12.8 % (11.5-14.5); White Blood Count 10.3 K/mm3 (4.5-10.0)
[2023-01-14 05:12] LABS: Alanine Aminotransferase 24 U/L (6-50); Albumin Level 3.4 g/dL (3.5-5.1); Alkaline Phosphatase 58 U/L (38-126); Anion Gap 2 mmol/L (8-16); Aspartate Amino Transferase 32 U/L (17-59); Bilirubin,Total 0.6 mg/dL (0.2-1.3); Blood Urea Nitrogen 51 mg/dL (9-20); Calcium 9.3 mg/dL (8.4-10.2); Carbon Dioxide 29 mmol/L (22-30); Chloride 102 mmol/L (98-107); Estimated CRCL calculation 46 ml/min; Estimated Glomerular Filt Rate 25; Glucose 136 mg/dL (65-110); Magnesium 1.9 mg/dL (1.6-2.3); Potassium 4.2 mmol/L (3.4-5.0); Sodium 133 mmol/L (137-145)
[2023-01-14 05:15] LABS: Partial Thromboplastin Time 85.2 SECONDS (22.3-36.8)
[2023-01-14 08:02] LABS: Glucose Point of Care 122 mg/dl (65-105)
[2023-01-14] MEDS: CLOPIDOGREL BISULFATE 75 MG TABLET PO (09:12)
[2023-01-14] MEDS: DULoxetine HCL 60 MG CAPSULE.DR PO (09:12)
[2023-01-14] MEDS: carvediloL 6.25 MG TABLET PO ×2 (09:12→19:28)
[2023-01-14] MEDS: ROSUVASTATIN 10 MG TABLET 40 MG PO (09:12)
[2023-01-14] MEDS: ASPIRIN 81 MG ENTERIC TABLET PO (09:14)
--- NOTE | 2023-01-14 11:04 | PCPTNOTE ---
Attempted to see patient at 1100, but sleeping after working with OT, will check on him this afternoon.
[2023-01-14 11:58] LABS: Glucose Point of Care 142 mg/dl (65-105)
--- NOTE | 2023-01-14 12:33 | PM.PNCARD ---
Progress Note: A&P Assessment and Plan (1) Non-ST elevation [place] (NSTEMI): Code(s): I21.4 - Non-ST elevation (NSTEMI) myocardial infarction Status: Acute Assessment and Plan: Patient had a dobutamine stress test in 06/2020 that showed moderate-severe infarct involving the RCA territory and mild ischemia in the LCX territory. LVEF at that time 63%. It does not appear patient ever followed up with anyone regarding the abnormal stress test. Current LVEF 20-25%. Troponin trend: 0.190 --> 25.3 --> 70.3 --> >80. Significant troponin elevation. Invasive ischemic evaluation with cardiac catheterization on hold due to renal insufficiency. Continue aspirin, clopidogrel, beta-viktoriya, statin. Continue unfractionated heparin till tomorrow, monitor APTT. GDMT with Entresto, jardiance, and spironolactone when renal function improves. Life vest at discharge. (2) Hypertensive emergency: Code(s): I16.1 - Hypertensive emergency Status: Acute Assessment and Plan: SBP 258/150mmHg on arrival. Improved with NTG drip. Now normotensive and off of NTG drip. Continue with Carvedilol. Cannot use ACEi/ARB/ARNI for blood pressure control at this time due to DEE. Would start CCB if blood pressure control needed. (3) Acute kidney injury: Code(s): N17.9 - Acute kidney failure, unspecified Status: Acute Assessment and Plan: Current creatinine 2.6. Baseline unknown, but no known history of CKD. Nephrology following. (4) Flash pulmonary edema: Code(s): J81.0 - Acute pulmonary edema Status: Acute Assessment and Plan: Resolved with BIPAP, NTG drip, Lasix. Intermittent Lasix as needed to maintain euvolemia. (5) Respiratory failure, acute: Code(s): J96.00 - Acute respiratory failure, unspecified whether with hypoxia or hypercapnia Status: Acute Assessment and Plan: Improved. (6) Diabetes type 2, uncontrolled: Code(s): E11.65 - Type 2 diabetes mellitus with hyperglycemia Status: Acute Assessment and Plan: Management per primary team (7) Hyperlipidemia: Code(s): E78.5 - Hyperlipidemia, unspecified Status: Acute Assessment and Plan: Continue high-intensity statin (8) MATEUS (obstructive sleep apnea): Code(s): G47.33 - Obstructive sleep apnea (adult) (pediatric) Status: Acute Assessment and Plan: Will need CPAP or BiPAP when sleeping, management per primary team. Time Spent With Patient Time with patient: 25 - 35 minutes Subjective Date/time seen: 01/14/23 12:33 Interval history: Date of service: 01/13/2023 Interval history: Patient lying down in the bed, appears somewhat somnolent. He states that he did not sleep well last night. Currently on BiPAP. Denies chest pain. Date of service 01/14/2023-patient is more alert today and reports continued improvement in shortness of breath. Denies chest pain. Exam Narrative: PHYSICAL EXAMINATION: GENERAL: Alert, morbidly obese MENTAL STATUS: Alert EYES: Extraocular movements intact, no pallor EARS: External ears appear normal, hearing grossly normal NOSE: BiPAP in place MOUTH: BiPAP in place NECK: Thick neck CHEST: Diffuse rhonchi HEART: Normal rate, regular rhythm, distant heart sounds due to body habitus ABDOMEN: Obese, nontender NEUROLOGICAL: Alert, oriented, normal speech, no gross motor deficits MUSCULOSKELETAL: No major deformity, no amputation EXTREMITIES: Pedal edema with stasis dermatitis SKIN: Eczema lower extremities PSYCHIATRIC: Normal mood, appropriate affect Objective Data Vital Signs Vital Signs: Vital Signs - 24 hr 01/13/23 14:00 01/13/23 16:00 01/13/23 16:00 Temperature Pulse Rate 58 L 58 L Respiratory Rate Blood Pressure Pulse Oximetry 99 Oxygen Delivery BiPAP Oxygen Flow Rate Fraction of Inspired Oxygen 25 01/13/23 16:00 01/13/23 18:00 01/13/23 19:46 Temperature
--- NOTE | 2023-01-14 12:35 | P.PNNP_ITS ---
Progress Note: A&P Assessment and Plan (1) Acute kidney injury: Code(s): N17.9 - Acute kidney failure, unspecified Status: Acute Assessment and Plan: * creatinine up compared to baseline (see #2) * however, rather than an acute insult, there may just be an element of CKD progression * his newly depressed EF and NSTEMI likely contributing to this as well (an element of cardiorenal syndrome) * evaluation to date: * renal ultrasound with mild right hydronephrosis * CT of abd/pelvis mentions no hydronephrosis * nephrotic range proteinuria noted * CPK mildly elevated but suspect related to NSTEMI * FeUrea suggest prerenal azotemia (but that is likely a reflection of his depressed EF) * follow repeat labs and UOP (2) Stage 3b chronic kidney disease: Code(s): N18.32 - Chronic kidney disease, stage 3b Status: Chronic Assessment and Plan: * recently established care with Dr. Gold for this issue * baseline creatinine has been running ~ 1.9 - 2.2mg/dl in the last year (2021) * was 1.5 - 1.6mg/dl in 2020 (arguing in favor of some disease progression) * new cardiomyopathy (low EF) + recent NSTEMI probably contributing to higher creatinine as well * etiology of CKD thought to be secondary to DM, HTN, vascular disease and kidney stones * history of bilateral staghorn kidney stones requiring lithotripsies/ureteral stents placement + removal/nephrostomy tubes placement + removal (3) Respiratory failure, acute: Code(s): J96.00 - Acute respiratory failure, unspecified whether with hypoxia or hyper capnia Status: Acute Assessment and Plan: * resolved * multifactorial: * CHF * pulmonary edema (secondary to HTN urgency + NSTEMI) * MATEUS/OHS * pneumonia(?) * was on BiPAP in ER - weaned down to nasal cannula * s/p IV diuretic therapy for pulmonary edema * was on empiric antibiotics for possible pneumonia but discontinued * follow respiratory status (4) Non-ST elevation [place] (NSTEMI): Code(s): I21.4 - Non-ST elevation (NSTEMI) myocardial infarction Status: Acute Assessment and Plan: * as noted by evidence to date: * EKG with ST and T wave abnormalities * elevated troponins * chest pain on presentation * has clear risk factors for CAD * abnormnal stress test 2019 (no follow-up regarding this testing) * chest pain free currently * Cardiology following * continue medical management (ASA + BB + statin+ heparin gtt) * Echo results noted -- EF ~ 20 - 25% * ischemic evaluation limited by renal dysfunction (5) Hypertension: Code(s): I10 - Essential (primary) hypertension Status: Chronic Assessment and Plan: * HTN urgency on presentation * better control at this time * follow trend of hemodynamics with current medications (6) Diabetes type 2, uncontrolled: Code(s): E11.65 - Type 2 diabetes mellitus with hyperglycemia Status: Acute Assessment and Plan: * follow accuchecks * glycemic control per hospitalist/assembler clip on sunglasses Will continue to follow. Subjective Date/time seen: 01/14/23 12:35 No apparent distress voiced at the time of my visit; he reports improvement in his breathing/respiratory status since I saw him yesterday; renal function/creatinine a tad better today by AM labs; seems to be more awake/alert today in comparison to yesterday. Exam Narrative: General: WD/WN male in NAD Heart: normal S1 and S2; no rub Lungs: jim
--- NOTE | 2023-01-14 12:35 | PM.PNNEP ---
Progress Note: A&P Assessment and Plan (1) Acute kidney injury: Code(s): N17.9 - Acute kidney failure, unspecified Status: Acute Assessment and Plan: creatinine up compared to baseline (see #2) however, rather than an acute insult, there may just be an element of CKD progression his newly depressed EF and NSTEMI likely contributing to this as well (an element of cardiorenal syndrome) evaluation to date: renal ultrasound with mild right hydronephrosis CT of abd/pelvis mentions no hydronephrosis nephrotic range proteinuria noted CPK mildly elevated but suspect related to NSTEMI FeUrea suggest prerenal azotemia (but that is likely a reflection of his depressed EF) follow repeat labs and UOP (2) Stage 3b chronic kidney disease: Code(s): N18.32 - Chronic kidney disease, stage 3b Status: Chronic Assessment and Plan: recently established care with Dr. Gold for this issue baseline creatinine has been running ~ 1.9 - 2.2mg/dl in the last year (2021) was 1.5 - 1.6mg/dl in 2020 (arguing in favor of some disease progression) new cardiomyopathy (low EF) + recent NSTEMI probably contributing to higher creatinine as well etiology of CKD thought to be secondary to DM, HTN, vascular disease and kidney stones history of bilateral staghorn kidney stones requiring lithotripsies/ureteral stents placement + removal/nephrostomy tubes placement + removal (3) Respiratory failure, acute: Code(s): J96.00 - Acute respiratory failure, unspecified whether with hypoxia or hypercapnia Status: Acute Assessment and Plan: resolved multifactorial: CHF pulmonary edema (secondary to HTN urgency + NSTEMI) MATEUS/OHS pneumonia(?) was on BiPAP in ER - weaned down to nasal cannula s/p IV diuretic therapy for pulmonary edema was on empiric antibiotics for possible pneumonia but discontinued follow respiratory status (4) Non-ST elevation [place] (NSTEMI): Code(s): I21.4 - Non-ST elevation (NSTEMI) myocardial infarction Status: Acute Assessment and Plan: as noted by evidence to date: EKG with ST and T wave abnormalities elevated troponins chest pain on presentation has clear risk factors for CAD abnormnal stress test 2019 (no follow-up regarding this testing) chest pain free currently Cardiology following continue medical management (ASA + BB + statin+ heparin gtt) Echo results noted -- EF ~ 20 - 25% ischemic evaluation limited by renal dysfunction (5) Hypertension: Code(s): I10 - Essential (primary) hypertension Status: Chronic Assessment and Plan: HTN urgency on presentation better control at this time follow trend of hemodynamics with current medications (6) Diabetes type 2, uncontrolled: Code(s): E11.65 - Type 2 diabetes mellitus with hyperglycemia Status: Acute Assessment and Plan: follow accuchecks glycemic control per hospitalist/metal tube cutter Will continue to follow. Subjective Date/time seen: 01/14/23 12:35 No apparent distress voiced at the time of my visit; he reports improvement in his breathing/respiratory status since I saw him yesterday; renal function/creatinine a tad better today by AM labs; seems to be more awake/alert today in comparison to yesterday. Exam Narrative: General: WD/WN male in NAD Heart: normal S1 and S2; no rub Lungs: clear anteriorly; decreased at bases Abdomen: soft, nontender, nondistended, positive bowel sounds Extremities: no cyanosis or clubbing; no edema Skin: no rash Objective Data Vital Signs Vital Signs: Vital Signs Temp Pulse Resp BP Pulse Ox O2 Del Method O2 Flow Rate 01/14/23 12:00 96.9 F L 58 L 12 142/67 H 97 01/14/23 10:00 70 01/14/23 08:00 60 01/14/23 09:38 Room Air 01/14/23 09:12 62 01/14/23 08:00 97.5 F L 56 L 16 141/71 H 98 01/14/23 08:15 95 Room Air
--- NOTE | 2023-01-14 12:54 | PC.NURSE ---
Walker in shift report that patient was unable to be fitted for his Lifevest due to his size. Spoke with Halina in care coordination regarding Lifevest sizing and need for equipment for discharge. Halina to contact Da with [facility].
--- NOTE | 2023-01-14 16:28 | PM.IMPN ---
Progress Note: A&P Assessment and Plan (1) Flash pulmonary edema: Code(s): J81.0 - Acute pulmonary edema Status: Acute Assessment and Plan: Patient came in with acute respiratory failure, blood pressure 150/150, symptoms suggestive flash edema. Patient given Lasix IV and was started on nitro drip. Patient felt better with improvement in blood pressure. Currently denies any chest pain. On review of home meds, there is no listed antihypertensive. Wean off nitro drip as tolerated. We will give the patient beta-viktoriya. Patient in acute kidney injury, will hold off on Brent inhibitors. Patient initially placed on BiPAP in the emergency room, able to talk comfortably with no evidence of tachypnea or shortness of breath currently, weaned off to nasal cannula as tolerated. 01/14/2023 interval history: Morbidly obese with BMI of 54 presented with emergently elevated blood pressure of 250/150 patient was placed on nitro drip, IV Lasix and transferred to ICU with BiPAP, and was also found to have elevated tropes seen by Cardiology patient had a abnormal dobutamine stress test in Jun 2020 however patient did not follow-up with his cardiology, fitness floor attendant recommended cardiac catheterization with it is not emergent as patient clinical symptoms have improved and he has no chest pain will continue heparin for 48 hours and started the patient on Plavix status and beta-viktoriya, will monitor, patient blood pressure has trended down and he is off nitro drip, currently patient denies any chest pain or shortness of breath, he is off BiPAP, his clinical symptoms have improved he was transferred out of ICU to IMU on 01/12, today patient received his LifeVest, seen by Cardiology recommended to continue heparin drip 1 more day and will stop tomorrow, patient is present in the room gave update will have a PT OT evaluate the patient patient will benefit with acute rehab will continue to monitor (2) Respiratory failure, acute: Code(s): J96.00 - Acute respiratory failure, unspecified whether with hypoxia or hypercapnia Status: Acute Assessment and Plan: Patient came in with florid respiratory failure, improved significantly with Lasix and nitro drip. Currently on BiPAP but saturating 100% with no complaints of further shortness of breath or chest pain. Patient able to talk in full sentences. Wean off as tolerated. Await official chest x-ray reading. Patient with a elevated WBC count of 16,000 on admission, will cover with empiric antibiotics. (3) Non-ST elevation [place] (NSTEMI): Code(s): I21.4 - Non-ST elevation (NSTEMI) myocardial infarction Status: Acute Assessment and Plan: Patient came in with chest pain and shortness of breath, found to be in flash pulmonary edema. EKG shows changes of sinus tachycardia with ST depressions in several leads. Old EKG was over 7 years ago which showed regular sinus rhythm. Unknown if these he changes are new or chronic. Patient had elevated troponin. Referred to cardiology and recommended to start on heparin drip. Continue to trend troponins. Check 2D echo to see ejection fraction. Consider cardiac catheterization. (4) Diabetes type 2, uncontrolled: Code(s): E11.65 - Type 2 diabetes mellitus with hyperglycemia Status: Acute Assessment and Plan: Patient with history of diabetes mellitus and is on high insulin doses at home. He reports blood sugar readings usually in the 130s. Blood sugar on admission elevated. Will monitor Accu-Cheks and cover with sliding scale insulin. Check hemoglobin A1c. Avoid hypoglycemia in setting of acute kidney injury. (5) Acute kidney injury: Code(s): N17.9 - Acute kidney failure, unspecified Status: Acute Assessment and Plan: Under review of labs patient had last creatinine of 1.5 over 3 years ago, unknown what his most recent creatinine was, current creatinine 2.4 here. Will adjust medications according to creat
[2023-01-14 16:38] LABS: Glucose Point of Care 151 mg/dl (65-105)
[2023-01-14 17:05] LABS: Pneumococcal Antigen Urine Not Detected (Not Detected)
[2023-01-14 19:55] LABS: Glucose Point of Care 162 mg/dl (65-105)
[2023-01-15] VITALS (16 sets, daily range): BP systolic 135–156; BP diastolic 62–78; PULSE 54–68; RESP 18–22; TEMP 36.2–36.6; O2SAT 92–99
[2023-01-15] MEDS: HEPARIN SOD/D5W 100 UNITS/ML 25,000 UNITS/250 ML BAG 28 UNITS IV CONT (04:00)
[2023-01-15 05:06] LABS: Hematocrit 36.7 % (42.0-52.0); Hemoglobin 11.7 g/dL (14.0-18.0); Mean Corpuscular HGB Conc 31.9 g/dl (32-36); Mean Corpuscular Hemoglobin 28.9 pg (26-34); Mean Corpuscular Volume 90.6 fl (80-100); Platelet Count Result 252 k/mm3 (150-375); Red Blood Count 4.05 M/mm3 (4.6-6.20); Red Cell Distribution Width 12.8 % (11.5-14.5); White Blood Count 9.7 K/mm3 (4.5-10.0)
[2023-01-15 05:19] LABS: Partial Thromboplastin Time 59.2 SECONDS (22.3-36.8)
[2023-01-15 05:21] LABS: Alanine Aminotransferase 21 U/L (6-50); Albumin Level 3.4 g/dL (3.5-5.1); Alkaline Phosphatase 62 U/L (38-126); Anion Gap 2 mmol/L (8-16); Aspartate Amino Transferase 27 U/L (17-59); Bilirubin,Total 0.7 mg/dL (0.2-1.3); Blood Urea Nitrogen 47 mg/dL (9-20); Calcium 9.1 mg/dL (8.4-10.2); Carbon Dioxide 31 mmol/L (22-30); Chloride 101 mmol/L (98-107); Estimated CRCL calculation 48 ml/min; Estimated Glomerular Filt Rate 26; Glucose 123 mg/dL (65-110); Magnesium 2.1 mg/dL (1.6-2.3); Sodium 134 mmol/L (137-145)
[2023-01-15] MEDS: HEPARIN SODIUM 5,000 UNITS/ML VIAL 4000 UNITS IV PUSH (05:33)
[2023-01-15 05:58] LABS: Legionella pneumophila Ag Ur Not Detected (Not Detected)
[2023-01-15] MEDS: carvediloL 6.25 MG TABLET PO (08:27)
[2023-01-15] MEDS: DULoxetine HCL 60 MG CAPSULE.DR PO (08:27)
[2023-01-15] MEDS: ASPIRIN 81 MG ENTERIC TABLET PO (08:27)
[2023-01-15] MEDS: CLOPIDOGREL BISULFATE 75 MG TABLET PO (08:27)
[2023-01-15] MEDS: ROSUVASTATIN 10 MG TABLET 40 MG PO (08:27)
[2023-01-15 10:40] LABS: Glucose Point of Care 127 mg/dl (65-105)
--- NOTE | 2023-01-15 10:51 | PM.PNCARD ---
Progress Note: A&P Assessment and Plan (1) Non-ST elevation [place] (NSTEMI): Code(s): I21.4 - Non-ST elevation (NSTEMI) myocardial infarction Status: Acute Assessment and Plan: Patient had a dobutamine stress test in 06/2020 that showed moderate-severe infarct involving the RCA territory and mild ischemia in the LCX territory. LVEF at that time 63%. It does not appear patient ever followed up with anyone regarding the abnormal stress test. Current LVEF 20-25%. Troponin trend: 0.190 --> 25.3 --> 70.3 --> >80. Significant troponin elevation. Invasive ischemic evaluation with cardiac catheterization on hold due to renal insufficiency. Continue aspirin, clopidogrel, beta-viktoriya, statin. Discontinue heparin GDMT with Entresto, jardiance, and spironolactone when renal function improves. His LifeVest has been delivered. (2) Hypertensive emergency: Code(s): I16.1 - Hypertensive emergency Status: Acute Assessment and Plan: SBP 258/150mmHg on arrival. Improved with NTG drip. Now normotensive and off of NTG drip. Continue with Carvedilol. Cannot use ACEi/ARB/ARNI for blood pressure control at this time due to DEE. Would start CCB if blood pressure control needed. (3) Acute kidney injury: Code(s): N17.9 - Acute kidney failure, unspecified Status: Acute Assessment and Plan: Nephrology following (4) Flash pulmonary edema: Code(s): J81.0 - Acute pulmonary edema Status: Acute Assessment and Plan: Resolved with BIPAP, NTG drip, Lasix. Intermittent Lasix as needed to maintain euvolemia. (5) Respiratory failure, acute: Code(s): J96.00 - Acute respiratory failure, unspecified whether with hypoxia or hypercapnia Status: Acute Assessment and Plan: Improved. (6) Diabetes type 2, uncontrolled: Code(s): E11.65 - Type 2 diabetes mellitus with hyperglycemia Status: Acute Assessment and Plan: Management per primary team (7) Hyperlipidemia: Code(s): E78.5 - Hyperlipidemia, unspecified Status: Acute Assessment and Plan: Continue high-intensity statin (8) MATEUS (obstructive sleep apnea): Code(s): G47.33 - Obstructive sleep apnea (adult) (pediatric) Status: Acute Assessment and Plan: Will need CPAP or BiPAP when sleeping, management per primary team. Subjective Date/time seen: 01/15/23 10:51 Interval history: Date of service: 01/13/2023 Interval history: Patient lying down in the bed, appears somewhat somnolent. He states that he did not sleep well last night. Currently on BiPAP. Denies chest pain. Date of service 01/14/2023-patient is more alert today and reports continued improvement in shortness of breath. Denies chest pain. Date of service 01/15/2023: No acute events overnight. Alert this morning. He denies any chest pain or shortness of breath. Review of Systems Review of Systems: All systems reviewed & are unremarkable except as noted in HPI and below (HPI) Exam Const: General: comfortable and no acute distress Other: Morbidly obese HENMT: Mouth: Yes moist mucous membranes Eyes: General: appearance normal, both eyes and all related structures Sclera: sclerae normal Neck: Neck: supple Other: Cannot assess JVD due to body habitus Resp: Effort & Inspection: normal respiratory effort Auscultation: clear to auscultation bilaterally Other: Decreased breath sounds bilaterally. Cardio: Rate: regular rate Rhythm: regular rhythm Heart sounds: no murmurs GI: Other: Obese abdomen Urinary Catheter: Urinary Catheter: patent and draining Skin: General skin exam: normal color Neuro: Speech: normal speech Extrem: General: normal to inspection Psych: Mental Status: mental status grossly normal Affect: normal affect Objective Data Vital Signs Vital Signs: Vital Signs - 24 hr 01/14/23 12:00 01/14/23 13:57 01/14/23 12:00 Temperature
--- NOTE | 2023-01-15 11:30 | PM.PNNEP ---
Progress Note: A&P Assessment and Plan (1) Acute kidney injury: Code(s): N17.9 - Acute kidney failure, unspecified Status: Acute Assessment and Plan: creatinine up compared to baseline (see #2) however, rather than an acute insult, there may just be an element of CKD progression his newly depressed EF and NSTEMI likely contributing to this as well (an element of cardiorenal syndrome) evaluation to date: renal ultrasound with mild right hydronephrosis CT of abd/pelvis mentions no hydronephrosis nephrotic range proteinuria noted CPK mildly elevated but suspect related to NSTEMI FeUrea suggest prerenal azotemia (but that is likely a reflection of his depressed EF) follow repeat labs and UOP (2) Stage 3b chronic kidney disease: Code(s): N18.32 - Chronic kidney disease, stage 3b Status: Chronic Assessment and Plan: recently established care with Dr. Gold for this issue baseline creatinine has been running ~ 1.9 - 2.2mg/dl in the last year (2021) was 1.5 - 1.6mg/dl in 2020 (arguing in favor of some disease progression) new cardiomyopathy (low EF) + recent NSTEMI probably contributing to higher creatinine as well etiology of CKD thought to be secondary to DM, HTN, vascular disease and kidney stones history of bilateral staghorn kidney stones requiring lithotripsies/ureteral stents placement + removal/nephrostomy tubes placement + removal (3) Respiratory failure, acute: Code(s): J96.00 - Acute respiratory failure, unspecified whether with hypoxia or hypercapnia Status: Acute Assessment and Plan: resolving multifactorial: CHF pulmonary edema (secondary to HTN urgency + NSTEMI) MATEUS/OHS pneumonia(?) was on BiPAP in ER - weaned down to nasal cannula s/p IV diuretic therapy for pulmonary edema was on empiric antibiotics for possible pneumonia but discontinued follow respiratory status (4) Non-ST elevation [place] (NSTEMI): Code(s): I21.4 - Non-ST elevation (NSTEMI) myocardial infarction Status: Acute Assessment and Plan: as noted by evidence to date: EKG with ST and T wave abnormalities elevated troponins chest pain on presentation has clear risk factors for CAD abnormnal stress test 2019 (no follow-up regarding this testing) chest pain free currently Cardiology following continue medical management (ASA + BB + statin+ heparin gtt) Echo results noted -- EF ~ 20 - 25% ischemic evaluation limited by renal dysfunction (5) Hypertension: Code(s): I10 - Essential (primary) hypertension Status: Chronic Assessment and Plan: HTN urgency on presentation better control at this time follow trend of hemodynamics with current medications (6) Diabetes type 2, uncontrolled: Code(s): E11.65 - Type 2 diabetes mellitus with hyperglycemia Status: Acute Assessment and Plan: follow accuchecks glycemic control per hospitalist/tool and production planner Will continue to follow. Subjective Date/time seen: 01/15/23 11:30 Appears to be doing reasonably well at the time of my visit; renal function stable if not improving with current interventions; no apparent distress noted; no events overnight or earlier this AM. Exam Narrative: General: WD/WN male in NAD Heart: normal S1 and S2; no rub Lungs: clear anteriorly; decreased at bases Abdomen: soft, nontender, nondistended, positive bowel sounds Extremities: no cyanosis or clubbing; no edema Skin: no nodules Objective Data Vital Signs Vital Signs: Vital Signs Temp Pulse Resp BP Pulse Ox O2 Del Method FiO2 01/15/23 10:00 58 L 01/15/23 08:00 95 Room Air 01/15/23 08:00 63 01/15/23 08:48 95 Room Air 01/15/23 08:27 62 01/15/23 07:51 97.2 F L 68 22 H 156/77 H 98 01/15/23 06:00 59 L 01/15/23 04:00 56 L 01/15/23 03:48 97.8 F 54 L 20 135/62 99
--- NOTE | 2023-01-15 11:30 | P.PNNP_ITS ---
Progress Note: A&P Assessment and Plan (1) Acute kidney injury: Code(s): N17.9 - Acute kidney failure, unspecified Status: Acute Assessment and Plan: * creatinine up compared to baseline (see #2) * however, rather than an acute insult, there may just be an element of CKD progression * his newly depressed EF and NSTEMI likely contributing to this as well (an element of cardiorenal syndrome) * evaluation to date: * renal ultrasound with mild right hydronephrosis * CT of abd/pelvis mentions no hydronephrosis * nephrotic range proteinuria noted * CPK mildly elevated but suspect related to NSTEMI * FeUrea suggest prerenal azotemia (but that is likely a reflection of his depressed EF) * follow repeat labs and UOP (2) Stage 3b chronic kidney disease: Code(s): N18.32 - Chronic kidney disease, stage 3b Status: Chronic Assessment and Plan: * recently established care with Dr. Gold for this issue * baseline creatinine has been running ~ 1.9 - 2.2mg/dl in the last year (2021) * was 1.5 - 1.6mg/dl in 2020 (arguing in favor of some disease progression) * new cardiomyopathy (low EF) + recent NSTEMI probably contributing to higher creatinine as well * etiology of CKD thought to be secondary to DM, HTN, vascular disease and kidney stones * history of bilateral staghorn kidney stones requiring lithotripsies/ureteral stents placement + removal/nephrostomy tubes placement + removal (3) Respiratory failure, acute: Code(s): J96.00 - Acute respiratory failure, unspecified whether with hypoxia or hyper capnia Status: Acute Assessment and Plan: * resolving * multifactorial: * CHF * pulmonary edema (secondary to HTN urgency + NSTEMI) * MATEUS/OHS * pneumonia(?) * was on BiPAP in ER - weaned down to nasal cannula * s/p IV diuretic therapy for pulmonary edema * was on empiric antibiotics for possible pneumonia but discontinued * follow respiratory status (4) Non-ST elevation [place] (NSTEMI): Code(s): I21.4 - Non-ST elevation (NSTEMI) myocardial infarction Status: Acute Assessment and Plan: * as noted by evidence to date: * EKG with ST and T wave abnormalities * elevated troponins * chest pain on presentation * has clear risk factors for CAD * abnormnal stress test 2019 (no follow-up regarding this testing) * chest pain free currently * Cardiology following * continue medical management (ASA + BB + statin+ heparin gtt) * Echo results noted -- EF ~ 20 - 25% * ischemic evaluation limited by renal dysfunction (5) Hypertension: Code(s): I10 - Essential (primary) hypertension Status: Chronic Assessment and Plan: * HTN urgency on presentation * better control at this time * follow trend of hemodynamics with current medications (6) Diabetes type 2, uncontrolled: Code(s): E11.65 - Type 2 diabetes mellitus with hyperglycemia Status: Acute Assessment and Plan: * follow accuchecks * glycemic control per hospitalist/service trainer Will continue to follow. Subjective Date/time seen: 01/15/23 11:30 Appears to be doing reasonably well at the time of my visit; renal function stable if not improving with current interventions; no apparent distress noted; no events overnight or earlier this AM. Exam Narrative: General: WD/WN male in NAD Heart: normal S1 and S2; no rub Lungs: clear anteriorly; decreased at bases Abdomen: soft, nontender, no
[2023-01-15] MEDS: HEPARIN SOD/D5W 100 UNITS/ML 25,000 UNITS/250 ML BAG 31 UNITS IV CONT (12:30)
[2023-01-15 12:50] LABS: Glucose Point of Care 130 mg/dl (65-105)
--- NOTE | 2023-01-15 15:00 | PM.DS ---
DS: Admitting Diagnosis Discharge Date 01/15/2023 Admitting Diagnosis Chest pain and shortness of breath DS: Discharge Diagnosis Discharge Diagnosis (1) Flash pulmonary edema: Code(s): J81.0 - Acute pulmonary edema Status: Acute Assessment and Plan: Patient came in with acute respiratory failure, blood pressure 150/150, symptoms suggestive flash edema. Patient given Lasix IV and was started on nitro drip. Patient felt better with improvement in blood pressure. Currently denies any chest pain. On review of home meds, there is no listed antihypertensive. Wean off nitro drip as tolerated. We will give the patient beta-viktoriya. Patient in acute kidney injury, will hold off on Brent inhibitors. Patient initially placed on BiPAP in the emergency room, able to talk comfortably with no evidence of tachypnea or shortness of breath currently, weaned off to nasal cannula as tolerated. 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 cardiac catheterization with it is not emergent as patient clinical symptoms have improved and he has no chest pain will continue heparin for 48 hours and started the patient on Plavix status and beta-viktoriya, will monitor, patient blood pressure has trended down and he is off nitro drip, currently patient denies any chest pain or shortness of breath, he is off BiPAP, his clinical symptoms have improved he was transferred out of ICU to IMU on 01/12, today patient received his LifeVest, seen by Cardiology recommended to continue heparin drip 1 more day and will stop tomorrow, patient is present in the room gave update will have a PT OT evaluate the patient patient will benefit with acute rehab will continue to monitor (2) Respiratory failure, acute: Code(s): J96.00 - Acute respiratory failure, unspecified whether with hypoxia or hypercapnia Status: Acute Assessment and Plan: Patient came in with florid respiratory failure, improved significantly with Lasix and nitro drip. Currently on BiPAP but saturating 100% with no complaints of further shortness of breath or chest pain. Patient able to talk in full sentences. Wean off as tolerated. Await official chest x-ray reading. Patient with a elevated WBC count of 16,000 on admission, will cover with empiric antibiotics. (3) Non-ST elevation [place] (NSTEMI): Code(s): I21.4 - Non-ST elevation (NSTEMI) myocardial infarction Status: Acute Assessment and Plan: Patient came in with chest pain and shortness of breath, found to be in flash pulmonary edema. EKG shows changes of sinus tachycardia with ST depressions in several leads. Old EKG was over 7 years ago which showed regular sinus rhythm. Unknown if these he changes are new or chronic. Patient had elevated troponin. Referred to cardiology and recommended to start on heparin drip. Continue to trend troponins. Check 2D echo to see ejection fraction. Consider cardiac catheterization. (4) Diabetes type 2, uncontrolled: Code(s): E11.65 - Type 2 diabetes mellitus with hyperglycemia Status: Acute Assessment and Plan: Patient with history of diabetes mellitus and is on high insulin doses at home. He reports blood sugar readings usually in the 130s. Blood sugar on admission elevated. Will monitor Accu-Cheks and cover with sliding scale insulin. Check hemoglobin A1c. Avoid hypoglycemia in setting of acute kidney injury. (5) Acute kidney injury: Code(s): N17.9 - Acute kidney failure, unspecified Status: Acute Assessment and Plan: Under review of labs patient had last creatinine of 1.5 over 3 years ago,
[2023-01-15 18:13] LABS: Mycoplasma IgM Antibody Titer 82 U/mL (<770)
[2023-01-17 17:21] LABS: Chloride Rand Ur 108 mmol/L (32-290); Chloride/Creatinine Rand Ur 200 (23-275); Creatinine Random Urine 54 mg/dL (20-320)
== END 2023-01-15 18:07 | disposition home health service (06) | DRG 189 ==
LOC: ANHED 23:02 → ANHICU 01-11 00:46 → ANHIMU 01-12 16:03
PROVIDERS: Internal Medicine; Internal Medicine Nephrology; Admitting Provider Internal Medicine; Emergency Provider Emergency Medicine; PCP Nurse Practitioner Family; Visit Provider Family Medicine
DX: J96.01 Acute respiratory failure with hypoxia (principal); J81.0 Acute pulmonary edema; I21.4 Non-ST elevation (NSTEMI) myocardial infarction; N17.9 Acute kidney failure, unspecified; I16.1 Hypertensive emergency; Z68.43 Body mass index [BMI] 50.0-59.9, adult; E11.65 Type 2 diabetes mellitus with hyperglycemia; E78.5 Hyperlipidemia, unspecified; G47.33 Obstructive sleep apnea (adult) (pediatric); E66.01 Morbid (severe) obesity due to excess calories; I12.9 Hypertensive chronic kidney disease with stage 1 through stage 4 chronic kidney disease, or unspecified chronic kidney disease; N18.32 Chronic kidney disease, stage 3b; E11.22 Type 2 diabetes mellitus with diabetic chronic kidney disease; I25.10 Atherosclerotic heart disease of native coronary artery without angina pectoris; Z20.822 Contact with and (suspected) exposure to COVID-19; Z87.891 Personal history of nicotine dependence; Z79.4 Long term (current) use of insulin; Z88.2 Allergy status to sulfonamides; Z88.1 Allergy status to other antibiotic agents; Z88.5 Allergy status to narcotic agent
CPT/HCPCS: 36415; 36600; 36620; 51702; 71045; 71250; 74176; 76775; 80053; 80061; 81050; 82375; 82436; 82550; 82570; 82805; 82948; 83036; 83050; 83690; 83735; 84145; 84156; 84300; 84443; 84484; 84540; 85025; 85027; 85610; 85730; 85999; 86738; 87040; 87086; 87088; 87106; 87449; 87636; 87899; 93005; 94003; 96374; 96375; 97110; 97161; 97165; 97530; 99285; A9270; C8929; J0610; J0696; J1644; J1815; J1940; J2405; J3010; J7030